=== PATIENT | female | born 1935 ===

== ENCOUNTER 2016-11-02 17:51 | Observation (INO) | payer MEDICARE, OTHER ==
[2016-11-02 18:01] VITALS: BMI 25.4
--- NOTE | 2016-11-02 19:12 | ED PDOC ---
"Arrival/HPI - General Chief Complaint: Headache Time Seen by Provider: 11/02/16 18:37 Historian: Patient, Family (daughter) - History of Present Illness Narrative History of Present Illness (Text): 11/02/16 19:00 This 81 yo female with pmh cva, ra, htn, hypercholesterol, dm, presents to this ED c/o posterior KHAN x 4 weeks. Patient stated she saw Dr. Martinez, who ordered an MRI of brain. She has MRI done 3 weeks ago, which was no acute finding. Daughter stated she spoke with patient, and daughter found patient speech was slurred. Time/Duration: Other (see hpi) Symptom Course: Worsening Context: Home Past Medical History - Provider Review Nursing Documentation Reviewed: Yes - Reproductive Menopause: Yes - Cardiac Hx Hypertension: Yes - Neurological HX Cerebrovascular Accident: Yes - Endocrine/Metabolic Hx Diabetes Mellitus Type 2: Yes - Musculoskeletal/Rheumatological Hx Rheumatoid Arthritis: Yes - Psychiatric Hx Depression: No Hx Substance Use: No - Surgical History Hx Hysterectomy: Yes - Anesthesia Hx Anesthesia: Yes Hx Anesthesia Reactions: No Hx Malignant Hyperthermia: No - Suicidal Assessment Feels Threatened In Home Enviroment: No Family/Social History Smoking Status: Never Smoked Hx Alcohol Use: No Hx Substance Use: No Allergies/Home Meds Allergies/Adverse Reactions: Allergies shellfish derived Allergy (Verified 11/02/16 17:55) URTICARIA shrimp Allergy (Verified 11/02/16 17:55) URTICARIA Home Medications: Home Meds Medication Instructions Recorded Confirmed Atenolol [Tenormin] 25 mg PO DAILY 11/02/16 11/02/16 Glipizide [Glipizide Xl] 5 mg PO BID 11/02/16 11/02/16 Levothyroxine Sodium 137 mcg PO DAILY 11/02/16 11/02/16 [Levothyroxine Sodium] Losartan [Cozaar] 100 mg PO DAILY 11/02/16 11/02/16 Methotrexate [Methotrexate] 8 tab PO QWK 11/02/16 11/02/16 Pantoprazole [Protonix EC Tab] 40 mg PO DAILY 11/02/16 11/02/16 Pravastatin Sodium [Pravachol] 40 mg PO DAILY 11/02/16 11/02/16 Prednisone [Arpit] 5 mg PO DAILY 11/02/16 11/02/16 chlordiazePOXIDE [Librium] 10 mg PO DAILY 11/02/16 11/02/16 metFORMIN [glucOPHAGE] 500 mg PO BID 11/02/16 11/02/16 Physical Exam Vital Signs Temp Pulse Resp BP Pulse Ox 11/02/16 20:00 60 18 154/89 H 97 11/02/16 17:55 98.1 F 65 18 152/76 H 97 Medical Decision Making - Lab Interpretations Lab Results: 11/02/16 20:20 11/02/16 20:20 Lab Results 11/02/16 20:20: Sodium 134, Potassium 4.9, Chloride 95 L, Carbon Dioxide 29, Anion Gap 15, BUN 18, Creatinine 0.9, Est GFR ( Amer) > 60, Est GFR (Non- Af Amer) > 60, Random Glucose 215 H, Calcium 9.5, Total Bilirubin 0.7, AST 19, ALT 19, Alkaline Phosphatase 50, Total Protein 7.5, Albumin 3.9, Globulin 3.6, Albumin/Globulin Ratio 1.1 11/02/16 20:20: WBC 7.5 D, RBC 3.91, Hgb 11.3 L, Hct 34.3 L, MCV 87.7, MCH 28.9 , MCHC 32.9, RDW 15.5 H, Plt Count 180, MPV 10.4, Gran % 88.3 H, Lymph % (Auto) 10.1 L, [place] % (Auto) 0.9 L, Eos % (Auto) 0.7 L, Baso % (Auto) 0.0, Gran # 6.59 H, Lymph # 0.8 L, [place] # 0.1, Eos # 0.1, Baso # 0.00 - RAD Interpretation Narrative RAD Interpretations (Text): 11/02/16 21:10 [facility] FINDINGS: Brain: Bilateral white matter changes. This is nonspecific and may include microangiopathic disease, small lacunae of indeterminate chronicity, chronic infarcts and/or encephalomalacia. Atrophy. Vascular calcification. No hemorrhage. No edema. Ventricles: No hydrocephalus. Bones: Skull is intact. Sinuses: Partial visualization of mild paranasal sinus mucosal thickening. Mastoid air cells: No mastoid effusion. IMPRESSION: No CT evidence of acute intracranial abnormality. Chronic changes as above. Acute infarcts/early ischemic changes may not be detectable by this modality; MRI is more sensitive in detecting acute ischemia. Thank you for allowing us to participate in the care of your patient. Dictated and Authenticated by: Angle Mercado MD FAN RACHEL | Final Radiology Report CONFIDENTIALITY STATEMENT This report is intended only for use by the referring physician, and only in accordance with law. If you received this in error, call [phone]. Page 2 of 2 11/02/2016 9:01 PM Eastern Time ([place] & [place]) Radiology Orders: 11/02/16 19:22 HEAD W/O CONTRAST [CT] Stat NIHSS Scale (Sweet) Time Performed: 20:21 - How Severe is the Stoke Baseline Level of Consciousness: 0=Alert LOC to Questions: 0=Both comments correct LOC to commands: 0=Obeys both correctly Best Gaze: 0=Normal Visual: 0=No visual loss Facial: 0=Normal Motor Arm - Left: 0=No drift Motor Arm - Right: 0=No drift Motor Leg - Left: 0=No drift Motor Leg - Right: 0=No drift Limb Ataxia: 0=Absent Sensory: 0=Normal Best Language: 0=No aphasia Dysarthia: 0=Normal articulation Extinction & Inattention (Neglect): 0=Normal, no object Score: 0 Risk Level: No Stroke Risk Disposition/Present on Arrival - Present on Arrival History of DVT/PE: No History of Uncontrolled Diabetes: Yes Urinary Catheter: No History of Decub. Ulcer: No History Surgical Site Infection Following: None - Disposition Referrals: Kenneth Morton MD [Primary Care Provider] - Follow up with primary"
[2016-11-02 20:38] LABS: EOS # 0.1 (0.0-0.7); EOS % 0.7 % (1.5-5.0); GRAN # 6.59 (1.4-6.5); GRAN % 88.3 % (50.0-68.0); HEMOGLOBIN 11.3 gm/dL (12.0-16.0); LYMPH # 0.8 (1.2-3.4); LYMPH % 10.1 % (22.0-35.0); MEAN CELL VOLUME 87.7 fL (80.0-105.0); MEAN CORPUSCULAR HEMOGLOBIN 28.9 pg (25.0-35.0); MEAN CORPUSCULAR HGB CONC 32.9 g/dl (31.0-37.0); MEAN PLATELET VOLUME 10.4 fl (7.0-11.0); MONO # 0.1 (0.1-0.6); MONO % 0.9 % (1.0-6.0); PLATELET COUNT 180 10^3/uL (120.0-450.0); RBC 3.91 10^6/uL (3.5-6.1); RED CELL DISTRIBUTION WIDTH 15.5 % (11.5-14.5); WHITE BLOOD COUNT 7.5 10^3/ul (4.5-11.0)
[2016-11-02 20:45] LABS: URINE BILIRUBIN NEGATIVE (NEGATIVE); URINE BLOOD TRACE-INTACT (NEGATIVE); URINE GLUCOSE (UA) NEGATIVE (NEGATIVE); URINE LEUKOCYTE ESTERASE SMALL Leu/uL (NEGATIVE); URINE NITRATE NEGATIVE (NEGATIVE); URINE PROTEIN NEGATIVE mg/dL (<30 mg/dL); URINE UROBILINOGEN 0.2 E.U./dL (<1 E.U./dL)
[2016-11-02 20:49] LABS: ALB/GLOB RATIO 1.1 (1.1-1.8); ALBUMIN 3.9 g/dL (3.0-4.8); ALT/SGPT 19 U/L (7-56); AST/SGOT 19 U/L (15-39); BLOOD UREA NITROGEN 18 mg/dL (7-21); CALCIUM 9.5 mg/dL (8.4-10.5); GFR AFRICAN-AMERICAN > 60; GFR NON-AFRICAN AMERICAN > 60; INR 0.99 (0.93-1.08); PARTIAL THROMBOPLASTIN TIME 25.3 Seconds (23.7-30.8); PROTHROMBIN TIME 10.7 Seconds (9.9-11.8)
--- NOTE | 2016-11-02 21:01 | CT ---
EXAM: CT Head Without Intravenous Contrast CLINICAL HISTORY: 81 years old, female; Signs and symptoms; Speech disturbance; Additional info: Slurred speech TECHNIQUE: Axial computed tomography images of the head/brain without intravenous contrast. This CT exam was performed using one or more of the following dose reduction techniques: automated exposure control, adjustment of the mA and/or kV according to patient size, and/or use of iterative reconstruction technique. COMPARISON: MR - BRAIN WITHOUT CONTRAST 10/10/2016 5:12:14 PM FINDINGS: Brain: Bilateral white matter changes. This is nonspecific and may include microangiopathic disease, small lacunae of indeterminate chronicity, chronic infarcts and/or encephalomalacia. Atrophy. Vascular calcification. No hemorrhage. No edema. Ventricles: No hydrocephalus. Bones: Skull is intact. Sinuses: Partial visualization of mild paranasal sinus mucosal thickening. Mastoid air cells: No mastoid effusion. IMPRESSION: No CT evidence of acute intracranial abnormality. Chronic changes as above. Acute infarcts/early ischemic changes may not be detectable by this modality; MRI is more sensitive in detecting acute ischemia.
[2016-11-02 21:17] LABS: URINE APPEARANCE SL CLOUDY (CLEAR); URINE COLOR YELLOW (YELLOW)
[2016-11-02 21:32] LABS: URINE BACTERIA FEW (NEG); URINE RBC 0 - 2 /hpf (0-2)
[2016-11-02 22:01] LABS: TROPONIN I < 0.01 ng/mL
--- NOTE | 2016-11-02 23:39 | CP.PCM.HP ---
<Froilan Yeh - Last Filed: 11/03/16 02:17> History of Present Illness - History of Present Illness History of Present Illness: Patient is a 81 y/o female with PMHx of anxiety, rheumatoid arthritis, htn, hpl , dm, presents to this ED for evaluation of a headache which began approximately 4 weeks ago without a specific provoking event. The headache is localized to the posterior aspect of the head. The pain is described as being dull in nature. It is exacerbated with activity and relieved when the patient massages affected region with Bengay medication. Patient stated she saw Dr. Martinez regarding this issue who ordered an MRI of brain 3 weeks ago, with no acute finding. Daughter is at bedside and states her mother did not have any signs of slurred speech or confusion. However, as per daughter the neighbor reported the patient experiencing slurred speech which the patient is denying having occurred. Patient denies fever, chills, chest pain, SOB, abdominal pain, N/V, diarrhea, constipation, and urinary symptoms. PMHx: anxiety, rheumatoid arthritis, htn, hpl, dm, bilateral cataracts PSHx: hysterectomy, cataract surgery right eye, varicose vein surgery left lower extremity Allergies: shellfish Social hx: denies ETOH, denies tobacco use, denies illicit drug use Family Hx: noncontributory to this case PMD: Dr. Martinez Present on Admission - Present on Admission Any Indicators Present on Admission: No Review of Systems - Review of Systems Review of Systems: 12 point ROS negative except as indicated in HPI. Past Patient History - Past Medical History & Family History Past Medical History?: Yes - Past Social History Smoking Status: Never Smoked - CARDIAC Hx Hypertension: Yes - NEUROLOGICAL HX Cerebrovascular Accident: Yes - ENDOCRINE/METABOLIC Hx Diabetes Mellitus Type 2: Yes - MUSCULOSKELETAL/RHEUMATOLOGICAL Hx Rheumatoid Arthritis: Yes - PSYCHIATRIC Hx Depression: No Hx Substance Use: No - SURGICAL HISTORY Hx Hysterectomy: Yes - ANESTHESIA Hx Anesthesia: Yes Hx Anesthesia Reactions: No Hx Malignant Hyperthermia: No Meds Allergies/Adverse Reactions: Allergies Allergy/AdvReac Type Severity Reaction Status Date / Time shellfish derived Allergy Intermediate URTICARIA Verified 11/03/16 01:22 shrimp Allergy Intermediate URTICARIA Verified 11/03/16 01:22 Physical Exam - Constitutional Appears: Non-toxic, No Acute Distress - Head Exam Head Exam: ATRAUMATIC, NORMAL INSPECTION - Eye Exam Eye Exam: EOMI, Normal appearance, PERRL - ENT Exam ENT Exam: Mucous Membranes Moist - Neck Exam Neck exam: Positive for: Full Rom. Negative for: Tenderness, Thyromegaly - Respiratory Exam Respiratory Exam: Clear to Auscultation Bilateral, NORMAL BREATHING PATTERN. absent: Rales, Rhonchi, Wheezes - Cardiovascular Exam Cardiovascular Exam: REGULAR RHYTHM, +S1, +S2 - GI/Abdominal Exam GI & Abdominal Exam: absent: Distended, Guarding, Rigid, Soft, Tenderness - Extremities Exam Extremities exam: Positive for: tenderness, pedal pulses present. Negative for : pedal edema Additional comments: left lower extremity ecchymosis - Back Exam Back exam: absent: CVA tenderness (L), CVA tenderness (R) - Neurological Exam Neurological exam: Alert, CN II-XII Intact, Oriented x3 - Psychiatric Exam Psychiatric exam: Anxious - Skin Skin Exam: Intact, Warm Results - Vital Signs Recent Vital Signs: Last Vital Signs Temp 98.1 F 11/02/16 17:55 Pulse 60 11/02/16 20:00 Resp 18 11/02/16 20:00 BP 154/89 H 11/02/16 20:00 Pulse Ox 97 11/02/16 20:00 - Labs Result Diagrams: 11/02/16 20:20 11/02/16 20:20 Assessment & Plan - Assessment and Plan (Free Text) Assessment: Patient is a 81 year old female with a PMHx of diabetes, hypertension, hyperlipidemia, hypothyroidism, RA who is being admitted to the hospital for evaluation and treatment of headache. 1. Headache, details- localized to the occipital condyles - Possible TIA - Noncontrast CT of Head reviewed- No CT evidence of acute intracranial abnormality. No hemorrhage. No edema. Bilateral white matter changes. This is nonspecific and may include microangiopathic disease, Vascular calcification present. - Neurochecks q4 - Neurology consult - Continue aspirin and statin 2. Diabetes - hold home diabetic medications - ACHS accu checks - Insulin sliding scales 3. Hypertension - continue home atenolol hold if SBP is less than 100 and/or HR is 60 in ED - continue home losartan hold if SBP is less than 100 and/or HR is 60 in ED 4. Hyperlipidemia - continue home statin 5. Hypothyroidism - continue home levothyroxine - TSH - T4 6. Rheumatoid Arthritis - continue home prednisone - hold home metotrexate 7. Anemia - HGb 11.3 at baseline - HCT 34.3 at baseline - monitor closely via daily CBC 7. PPX - subq heparin q12 - pantoprazole Patient discussed with attending, Dr. Trujillo. <Cassandra WATKINS,Atilio - Last Filed: 11/03/16 07:30> Results - Vital Signs Recent Vital Signs: Last Vital Signs Temp 97.1 F L 11/03/16 01:30 Pulse 56 L 11/03/16 06:00 Resp 19 11/03/16 01:30 BP 154/60 H 11/03/16 01:30 Pulse Ox 99 11/02/16 23:00 - Labs Result Diagrams: 11/02/16 20:20 11/02/16 20:20 Labs: Laboratory Results - last 24 hr 11/03/16 07:11 POC Glucose (mg/dL) 167 H Attending/Attestation - Attestation I have personally seen and examined this patient.: Yes I have fully participated in the care of the patient.: Yes I have reviewed all pertinent clinical information: Yes Notes (Text): 11/03/16 07:29 -I agree with the above H&P completed by the resident physician with the following additions and/or changes: The patiuent is an 81 year old woman with a history of IDDM, hypertension, hyperlipidemia, hypothyroidism and RA, admitted for worsening headache and possible TIA. Neurology consulted. Head imaging negative.
[2016-11-03] MEDS ORDERED: Pantoprazole 40 mg EC Tab PO SCH (06:00)
[2016-11-03] MEDS ORDERED: Levothyroxine 25 MCG TAB PO SCH ×2 (06:00)
[2016-11-03] MEDS ORDERED: Levothyroxine 112 MCG TAB PO SCH (06:00)
[2016-11-03] MEDS: Insulin Lispro (humaLOG) MEDIUM Coverage SC SCH ×2 (07:30→11:51)
[2016-11-03 07:54] LABS: BASO # 0.01 K/mm3 (0.0-2.0); BASO % 0.1 % (0.0-3.0); EOS # 0.3 (0.0-0.7); EOS % 4.6 % (1.5-5.0); GRAN # 4.25 (1.4-6.5); GRAN % 63.8 % (50.0-68.0); LYMPH # 1.9 (1.2-3.4); MEAN CELL VOLUME 87.3 fL (80.0-105.0); MEAN CORPUSCULAR HEMOGLOBIN 28.5 pg (25.0-35.0); MEAN CORPUSCULAR HGB CONC 32.6 g/dl (31.0-37.0); MEAN PLATELET VOLUME 10.8 fl (7.0-11.0); MONO # 0.2 (0.1-0.6); MONO % 2.5 % (1.0-6.0); PLATELET COUNT 212 10^3/uL (120.0-450.0); RBC 3.86 10^6/uL (3.5-6.1); RED CELL DISTRIBUTION WIDTH 15.7 % (11.5-14.5); WHITE BLOOD COUNT 6.7 10^3/ul (4.5-11.0)
[2016-11-03 08:04] LABS: ALBUMIN 3.6 g/dL (3.0-4.8); ALT/SGPT 13 U/L (7-56); AST/SGOT 18 U/L (15-39); BLOOD UREA NITROGEN 19 mg/dL (7-21); CALCIUM 9.4 mg/dL (8.4-10.5); GFR AFRICAN-AMERICAN > 60; GFR NON-AFRICAN AMERICAN > 60; HDL CHOLESTEROL 47 mg/dL (29-60); MAGNESIUM 2.2 mg/dL (1.7-2.2)
[2016-11-03 08:20] LABS: LDL CHOLESTEROL 90 mg/dL (0-129)
[2016-11-03 08:30] LABS: T4 9.7 ug/dL (5.5-11.0)
[2016-11-03 08:33] VITALS: BP 132/53; RESP 18; TEMP 97.9; O2SAT 94
[2016-11-03 11:25] VITALS: PULSE 60
--- NOTE | 2016-11-03 18:46 | CP.PCM.DIS ---
Provider - Provider Date of Admission: 11/02/16 22:28 Attending physician: Una Cleary MD Primary care physician: Kenneth Morton MD Time Spent in preparation of Discharge (in minutes): 45 Diagnosis - Discharge Diagnosis (1) Headache Status: Acute Hospital Course - Lab Results Lab Results: Most Recent Lab Values WBC 6.7 10^3/ul (4.5-11.0) 11/03/16 07:30 RBC 3.86 10^6/uL (3.5-6.1) 11/03/16 07:30 Hgb 11.0 gm/dL (12.0-16.0) L 11/03/16 07:30 Hct 33.7 % (36.0-48.0) L 11/03/16 07:30 MCV 87.3 fL (80.0-105.0) 11/03/16 07:30 MCH 28.5 pg (25.0-35.0) 11/03/16 07:30 MCHC 32.6 g/dl (31.0-37.0) 11/03/16 07:30 RDW 15.7 % (11.5-14.5) H 11/03/16 07:30 Plt Count 212 10^3/uL (120.0-450.0) 11/03/16 07:30 MPV 10.8 fl (7.0-11.0) 11/03/16 07:30 Gran % 63.8 % (50.0-68.0) 11/03/16 07:30 Lymph % (Auto) 29.0 % (22.0-35.0) 11/03/16 07:30 [place] % (Auto) 2.5 % (1.0-6.0) 11/03/16 07:30 Eos % (Auto) 4.6 % (1.5-5.0) 11/03/16 07:30 Baso % (Auto) 0.1 % (0.0-3.0) 11/03/16 07:30 Gran # 4.25 (1.4-6.5) 11/03/16 07:30 Lymph # 1.9 (1.2-3.4) 11/03/16 07:30 [place] # 0.2 (0.1-0.6) 11/03/16 07:30 Eos # 0.3 (0.0-0.7) 11/03/16 07:30 Baso # 0.01 K/mm3 (0.0-2.0) 11/03/16 07:30 PT 10.7 Seconds (9.9-11.8) 11/02/16 20:20 INR 0.99 (0.93-1.08) 11/02/16 20:20 APTT 25.3 Seconds (23.7-30.8) 11/02/16 20:20 Sodium 137 mmol/L (132-148) 11/03/16 07:30 Potassium 4.2 mmol/L (3.6-5.0) 11/03/16 07:30 Chloride 99 mmol/L (98-107) 11/03/16 07:30 Carbon Dioxide 30 mmol/L (21-33) 11/03/16 07:30 Anion Gap 12 (10-20) 11/03/16 07:30 BUN 19 mg/dL (7-21) 11/03/16 07:30 Creatinine 0.9 mg/dL (0.5-1.4) 11/03/16 07:30 Est GFR ( Amer) > 60 11/03/16 07:30 Est GFR (Non-Af Amer) > 60 11/03/16 07:30 POC Glucose (mg/dL) 233 mg/dL (65-110) H 11/03/16 11:05 Random Glucose 137 mg/dL (70-110) H 11/03/16 07:30 Calcium 9.4 mg/dL (8.4-10.5) 11/03/16 07:30 Phosphorus 3.9 mg/dL (2.5-4.5) 11/03/16 07:30 Magnesium 2.2 mg/dL (1.7-2.2) 11/03/16 07:30 Total Bilirubin 0.6 mg/dL (0.2-1.3) 11/03/16 07:30 AST 18 U/L (15-39) 11/03/16 07:30 ALT 13 U/L (7-56) 11/03/16 07:30 Alkaline Phosphatase 46 U/L (38-133) 11/03/16 07:30 Lactate Dehydrogenase 509 U/L (333-699) 11/02/16 20:30 Total Creatine Kinase 60 U/L (35-230) 11/02/16 20:30 Troponin I < 0.01 ng/mL 11/02/16 20:30 Total Protein 7.1 g/dL (5.8-8.3) 11/03/16 07:30 Albumin 3.6 g/dL (3.0-4.8) 11/03/16 07:30 Globulin 3.5 gm/dL 11/03/16 07:30 Albumin/Globulin Ratio 1.0 (1.1-1.8) L 11/03/16 07:30 Triglycerides 125 mg/dL (35-160) 11/03/16 07:30 Cholesterol 166 mg/dL (130-200) 11/03/16 07:30 LDL Cholesterol Direct 90 mg/dL (0-129) 11/03/16 07:30 HDL Cholesterol 47 mg/dL (29-60) 11/03/16 07:30 Thyroxine (T4) 9.7 ug/dL (5.5-11.0) 11/03/16 07:30 TSH 3rd Generation 0.66 mIU/mL (0.46-4.68) 11/03/16 07:30 Urine Color Yellow (YELLOW) 11/02/16 20:40 Urine Appearance Sl cloudy (CLEAR) 11/02/16 20:40 Urine pH 7.0 (4.7-8.0) 11/02/16 20:40 Ur Specific [place] <= 1.005 (1.005-1.035) 11/02/16 20:40 Urine Protein Negative mg/dL (<30 mg/dL) 11/02/16 20:40 Urine Glucose (UA) Negative mg/dL (NEGATIVE) 11/02/16 20:40 Urine Ketones Negative mg/dL (NEGATIVE) 11/02/16 20:40 Urine Blood Trace-intact (NEGATIVE) H 11/02/16 20:40 Urine Nitrate Negative (NEGATIVE) 11/02/16 20:40 Urine Bilirubin Negative (NEGATIVE) 11/02/16 20:40 Urine Urobilinogen 0.2 E.U./dL (<1 E.U./dL) 11/02/16 20:40 Ur Leukocyte Esterase Small [place]/uL (NEGATIVE) H 11/02/16 20:40 Urine RBC 0 - 2 /hpf (0-2) 11/02/16 20:40 Urine WBC 2 - 5 /hpf (0-6) 11/02/16 20:40 Ur Epithelial Cells 4 - 5 /hpf (0-5) 11/02/16 20:40 Urine Bacteria Few (NEG) 11/02/16 20:40 - Hospital Course Hospital Course: Patient is a 81 y/o female with PMHx of anxiety, rheumatoid arthritis, htn, hpl , dm, presents to this ED for evaluation of a headache which began approximately 4 weeks ago without a specific provoking event. The headache is localized to the posterior aspect of the head. The pain is described as being dull in nature. It is exacerbated with activity and relieved when the patient massages affected region with Bengay medication. Patient stated she saw Dr. Martinez regarding this issue who ordered an MRI of brain 3 weeks ago, with no acute finding. Daughter is at bedside and states her mother did not have any signs of slurred speech or confusion. However, as per daughter the neighbor reported the patient experiencing slurred speech which the patient is denying having occurred. Patient denies fever, chills, chest pain, SOB, abdominal pain, N/V, diarrhea, constipation, and urinary symptoms. Patient was seen by a neurologist in patient, who recommended out patient follow up. No focal neurologic deficits were appreciated, and since the pain was dissipated by massage, the complaint was deemed most likely musculoskeletal , and patient was approved for discharge by both the neurology and the medicine team. - Date & Time of H&P Date of H&P: 11/02/16 Time of H&P: 23:35 Discharge Exam - Head Exam Head Exam: ATRAUMATIC, NORMAL INSPECTION - Eye Exam Eye Exam: EOMI Pupil Exam: Fixed, NORMAL ACCOMODATION, PERRL - ENT Exam ENT Exam: Mucous Membranes Moist - Neck Exam Neck exam: Full Rom - Respiratory Exam Respiratory Exam: Clear to PA & Lateral, NORMAL BREATHING PATTERN, UNREMARKABLE - Cardiovascular Exam Cardiovascular Exam: REGULAR RHYTHM - GI/Abdominal Exam GI & Abdominal Exam: Normal Bowel Sounds - Rectal Exam Rectal Exam: Deferred - Back Exam Back exam: FULL ROM - Neurological Exam Neurological exam: Alert, CN II-XII Intact, Normal Gait, Oriented x3, Reflexes Normal - Psychiatric Exam Psychiatric exam: Normal Affect, Normal Mood - Skin Skin Exam: Normal Color Discharge Plan - Discharge Medications Prescriptions: Aspirin [Aspirin Chewable] 81 mg PO DAILY #30 Aspirin [Low Dose Aspirin EC] 81 mg PO DAILY #30 tablet. - Follow Up Plan Condition: GOOD Disposition: HOME/ ROUTINE Instructions: Transient Ischemic Attack (DC), Transient Ischemic Attack (GEN) Additional Instructions: Please follow up with Dr. Angus Barton at [phone] within one week. If symptoms persist, please report to the Emergency Room Referrals: Kenneth Morton MD [Primary Care Provider] -
== END 2016-11-03 17:41 | disposition home or self-care (01) ==
LOC: ED 17:51 → ERH 22:28 → 3RSO 23:48
PROVIDERS: ADMIT Internal Medicine; ATTEND Internal Medicine
DX: R51 Headache (principal); I10 Essential (primary) hypertension; E78.00 Pure hypercholesterolemia, unspecified; E11.9 Type 2 diabetes mellitus without complications; Z86.73 Personal history of transient ischemic attack (TIA), and cerebral infarction without residual deficits; M06.9 Rheumatoid arthritis, unspecified; F41.9 Anxiety disorder, unspecified; E78.5 Hyperlipidemia, unspecified; E03.9 Hypothyroidism, unspecified; D64.9 Anemia, unspecified; Z79.84 Long term (current) use of oral hypoglycemic drugs; Z90.710 Acquired absence of both cervix and uterus; Z98.42 Cataract extraction status, left eye; Z98.41 Cataract extraction status, right eye
CPT/HCPCS: 36415; 70450; 80053; 80061; 81001; 82550; 82948; 83615; 83735; 84100; 84436; 84443; 84484; 85025; 85610; 85730; 87086; 97116; 97161; 99285; G0378; G8978; G8979; G8980; J1644

== ENCOUNTER 2017-07-23 09:30 | Inpatient (IN) | payer MEDICARE, OTHER ==
[2017-07-23 09:32] VITALS: BMI 22.8
[2017-07-23] MEDS ORDERED: Sodium Chloride 0.9% 500 ML IV STA (09:47)
--- NOTE | 2017-07-23 10:07 | ED PDOC ---
Arrival/HPI - General Chief Complaint: Trauma Time Seen by Provider: 07/23/17 09:37 Historian: Patient, Family - History of Present Illness Narrative History of Present Illness (Text): 07/23/17 10:04 81-year-old female with a history of diabetes presents today with a syncopal episode at home. Patient states for the past 3 days she's been sick with nausea vomiting and diarrhea. pt states she has been having 4-5 episodes of diarrhea daily as well as 3 episodes of vomiting. Patient states she's been unable to eat or drink due to the nausea and vomiting. Patient states she's been having some intermittent chest pain. She denies urinary symptoms. Patient states that today she was walking and states when she opened her eyes she was on the floor. Patient is complaining of left ankle pain x 3 days. Per patient she also had fallen 3 days ago and injured the ankle but has been walking on it ever since. Patient denies shortness of breath. Patient states she also has had a cough for almost a week. Denies neck or back pain. Complaining of slight headache. Patient states she is feeling overall generally weak. No other complaints Time/Duration: 1 week Symptom Onset: Gradual Symptom Course: Worsening Severity Level: 3 Past Medical History - Provider Review Nursing Documentation Reviewed: Yes - Travel History Have you recently traveled outside [place] w/in the past 3 mons?: No - Tetanus Immunization Tetanus Immunization: Unknown - Cardiac Hx Hypertension: Yes - Pulmonary Hx Chronic Obstructive Pulmonary Disease (COPD): Yes - Neurological HX Cerebrovascular Accident: Yes - HEENT Hx HEENT Disorder: Yes Hx Cataracts: Yes - Renal Hx Renal Disorder: No - Endocrine/Metabolic Hx Diabetes Mellitus Type 2: Yes - Hematological/Oncological Hx Blood Disorders: No Hx Shingles: Yes - Integumentary Hx Dermatological Disorder: No - Musculoskeletal/Rheumatological Hx Rheumatoid Arthritis: Yes - Gastrointestinal Hx Gastrointestinal Disorders: Yes Hx Gastroesophageal Reflux: Yes - Genitourinary/Gynecological Hx Genitourinary Disorders: No - Psychiatric Hx Depression: No Hx Substance Use: No - Surgical History Hx Hysterectomy: Yes - Anesthesia Hx Anesthesia: Yes Hx Anesthesia Reactions: No Hx Malignant Hyperthermia: No - Suicidal Assessment Feels Threatened In Home Enviroment: No Family/Social History - Physician Review Nursing Documentation Reviewed: Yes Family/Social History: Unknown Family HX Smoking Status: Never Smoked Hx Alcohol Use: No Hx Substance Use: No Allergies/Home Meds Allergies/Adverse Reactions: Allergies shellfish derived Allergy (Intermediate, Verified 07/23/17 09:32) URTICARIA swelling & redness shrimp Allergy (Intermediate, Verified 07/23/17 09:32) URTICARIA swelling, redness Home Medications: Home Meds Medication Instructions Recorded Confirmed Atenolol [Tenormin] 25 mg PO DAILY 11/02/16 07/23/17 Glipizide [Glipizide Xl] 25 mg PO BID 11/02/16 07/23/17 Levothyroxine Sodium 137 mcg PO DAILY 11/02/16 07/23/17 Pantoprazole [Protonix EC Tab] 40 mg PO DAILY 11/02/16 07/23/17 Pravastatin Sodium [Pravachol] 40 mg PO DAILY 11/02/16 07/23/17 Prednisone [Arpit] 5 mg PO DAILY 11/02/16 07/23/17 metFORMIN [glucOPHAGE] 500 mg PO BID 11/02/16 07/23/17 Albuterol HFA [Ventolin HFA 90 0 mg IH DAILY 07/23/17 07/23/17 mcg/actuation (8 g)] Fluticasone/Vilanterol [Breo 1 each IH DAILY 07/23/17 07/23/17 Ellipta 100-25 Mcg INH] Lidocaine 2% [Xylocaine 2%] 1 appl TP DAILY 07/23/17 07/23/17 Omeprazole Magnesium [Prilosec Otc] 40 mg PO DAILY 07/23/17 07/23/17 Review of Systems - Review of Systems Constitutional: Fatigue. absent: Fevers ENT: absent: Sore Throat, Sinus Congestion Respiratory: Cough. absent: SOB Cardiovascular: Chest Pain, Syncope. absent: Palpitations Gastrointestinal: Abdominal Pain, Diarrhea, Nausea, Vomiting. absent: Constipation Genitourinary Female: absent: Dysuria, Frequency, Hematuria Musculoskeletal: Arthralgias (left ankle pain). absent: Back Pain, Neck Pain Skin: absent: Rash, Pruritis Neurological: Headache, Dizziness Psychiatric: absent: Anxiety, Depression, Suicidal Ideation Physical Exam Vital Signs Reviewed: Yes Vital Signs Temp Pulse Resp BP Pulse Ox 07/23/17 17:47 61 18 128/53 L 100 07/23/17 15:08 68 18 121/76 98 07/23/17 12:19 99.6 F 72 18 116/55 L 98 07/23/17 09:31 98.4 F 70 18 133/65 100 Temperature: Afebrile Blood Pressure: Normal Pulse: Regular Respiratory Rate: Normal Appearance: Positive for: Well-Appearing, Non-Toxic, Comfortable Pain Distress: None Mental Status: Positive for: Alert and Oriented X 3 - Systems Exam Head: Present: Atraumatic Pupils: Present: PERRL Extroacular Muscles: Present: EOMI Conjunctiva: Present: Normal Mouth: Present: Dry Nose (External): Present: Atraumatic Neck: Present: Normal Range of Motion. No: MIDLINE TENDERNESS, Paraspinal Tenderness Respiratory/Chest: Present: Good Air Exchange, Rhonchi (Left lower lung base). No: Clear to Auscultation, Respiratory Distress, Accessory Muscle Use, Wheezes Cardiovascular: Present: Regular Rate and Rhythm. No: Murmurs, Tachycardic Abdomen: Present: Tenderness (+ epigastric tenderness). No: Distention, Rebound , Guarding Back: Present: Normal Inspection. No: CVA Tenderness, Midline Tenderness, Paraspinal Tenderness Upper Extremity: Present: Normal ROM Lower Extremity: Present: NORMAL PULSES, Normal ROM, Tenderness (left ankle; + ttp over lateral malleolus; full rom of ankle; foot non tender; no erythema; no edema, no ecchymosis. ), Neurovascularly Intact, Capillary Refill < 2 s. No: CALF TENDERNESS, Swelling, Erythema, Deformity Neurological: Present: GCS=15, Speech Normal Skin: Present: Warm, Dry, Normal Color. No: Rashes Psychiatric: Present: Alert, Oriented x 3 Medical Decision Making ED Course and Treatment: 07/23/17 10:09 81-year-old diabetic female with a syncopal episode at home with a 3 to four- day history of nausea vomiting diarrhea and now 1 week history of cough pt c/o pain to left ankle; pt refusing pain medications at this time. pt states she doesnt want to take any "strong" medications Patient given 500 mL normal saline bolus patient fs <20; amp of d50 given. pt drank orange juice. CBC: wnl CMP: glucose; 43 Troponin: wnl Lipase: wnl BNP: elevated Lactic acid: wnl EKG shows normal sinus rhythm at 71 bpm normal axis normal intervals no ST elevations Chest x-ray: wnl Head CT:FINDINGS: HEMORRHAGE: No intracranial hemorrhage. BRAIN: No mass effect or edema. No atrophy or chronic microvascular ischemic changes. VENTRICLES: Unremarkable. No hydrocephalus. CALVARIUM: Unremarkable. PARANASAL SINUSES: Unremarkable as visualized. No significant inflammatory changes. MASTOID AIR CELLS: Unremarkable as visualized. No inflammatory changes. OTHER FINDINGS: None. IMPRESSION: No acute findings left ankle: + fracture fibula ct abd/pelvis; FINDINGS: LOWER THORAX: There is minimal consolidation at the left lung base. There is some peribronchial thickening in the left lower lobe LIVER: Unremarkable. No gross lesion or ductal dilatation. GALLBLADDER AND BILE DUCTS: Unremarkable. PANCREAS: Unremarkable. No gross lesion or ductal dilatation. SPLEEN: Unremarkable. ADRENALS: Unremarkable. No mass. KIDNEYS AND URETERS: Unremarkable. No hydronephrosis. No solid mass. There is a large cyst in the lower pole of left kidney. VASCULATURE: Unremarkable. No aortic aneurysm. BOWEL: Unremarkable. No obstruction. No gross mural thickening. APPENDIX: Normal appendix. PERITONEUM: Unremarkable. No free fluid. No free air. LYMPH NODES: Unremarkable. No enlarged lymph nodes. BLADDER: Unremarkable. REPRODUCTIVE: Unremarkable. BONES: No acute fracture. OTHER FINDINGS: None. IMPRESSION: No acute intra-abdominal findings. Minimal consolidation at the left lung base with peribronchial thickening Patient reassessment: pt states she feels better; resting comfortably; i advised patient of ankle fracture. pt has now agreed to tylenol; pt is still refusing IV/IM medications or any narcotic medications for pain. pt placed into short leg posterior splint. pt started on rocephin and zithromax for pneumonia; case discussed with dr. sanders; accepts admission; pt with elevated bnp ; [id number] 100% on room air; no respiratory distress. will admit patient to tele; for hypoglycemia, pneumonia, abdominal pain, ankle fracture dr. mcdermott made aware of ankle fracture. impression; hypoglycemia, pneumonia, abdominal pain, ankle fracture, elevated BNP Admit to telemetry Reassessment Condition: Re-examined, Improved - Lab Interpretations Lab Results: 07/23/17 11:15 07/23/17 09:50 Lab Results 07/23/17 11:34: POC Glucose (mg/dL) 139 H 07/23/17 11:15: WBC 6.1 D, RBC 3.27 L, Hgb 10.1 L, Hct 29.3 L, MCV 89.6, MCH 30.9, MCHC 34.5, RDW 17.3 H, Plt Count 130, MPV 10.6, Gran % 85.5 H, Lymph % ( Auto) 5.9 L, [place] % (Auto) 8.6 H, Eos % (Auto) 0.0 L, Baso % (Auto) 0.0, Gran # 5.20, Lymph # (Auto) 0.4 L, [place] # (Auto) 0.5, Eos # (Auto) 0.0, Baso # (Auto) 0.00 07/23/17 11:15: Urine Color Light yellow, Urine Appearance Clear, Urine pH 6.5, Ur Specific [place] <= 1.005, Urine Protein Negative, Urine Glucose (UA) 100 H, Urine Ketones Negative, Urine Blood Trace-intact H, Urine Nitrate Negative, Urine Bilirubin Negative, Urine Urobilinogen 0.2, Ur Leukocyte Esterase Negative , Urine RBC 2 - 5, Urine WBC 0 - 2, Ur Epithelial Cells 1 - 3, Urine Bacteria Small 07/23/17 10:40: POC Glucose (mg/dL) 21 L* 07/23/17 09:50: pO2 28 L, VBG pH 7.40, VBG pCO2 51.0, VBG HCO3 31.6 H, VBG Total CO2 33.2 H, VBG O2 Sat (Calc) 65.4 H, VBG Base Excess 5.5 H, VBG Potassium 4.1, Sodium 125.0 L, Chloride 91.0 L, Glucose 43 L, Lactate 0.9, FiO2 21.0, Venous Blood Potassium 4.1 07/23/17 09:50: Sodium 127 L, Chloride 88 L, Potassium 4.1, Carbon Dioxide 30, Anion Gap 13, BUN 12, Creatinine 0.9, Est GFR ( Amer) > 60, Est GFR (Non- Af Amer) > 60, Random Glucose 43 L* D, Calcium 9.2, Total Bilirubin 0.6, AST 39 H D, ALT 35, Alkaline Phosphatase 30 L, Lactate Dehydrogenase 654, Total Creatine Kinase 285 H, CK-MB (CK-2) 1.4, CK-MB (CK-2) % Cancelled, Troponin I 0.03 D, NT-Pro-B Natriuret Pep 1480 H, Total Protein 7.3, Albumin 4.0, Globulin 3.3, Albumin/Globulin Ratio 1.2, Lipase 48 - RAD Interpretation Radiology Orders: 07/23/17 09:47 ABD & PELVIS IV CONTRAST ONLY [CT] Stat HEAD W/O CONTRAST [CT] Stat 07/23/17 09:48 ANKLE LEFT 3 VIEWS ROUTINE [RAD] Stat 07/23/17 12:37 CHEST PORTABLE [RAD] Stat - Medication Orders Current Medication Orders: Acetaminophen (Tylenol 325mg Tab) 650 mg PO Q6H PRN PRN Reason: Fever >100.4 F Acetaminophen (Tylenol 325mg Tab) 650 mg PO Q6H PRN PRN Reason: Fever >100.4 F Atenolol (Tenormin) 25 mg PO DAILY [facility] Doxycycline Hyclate 100 mg/ (Sodium Chloride) 100 mls @ 100 mls/hr IVPB Q12 [place] PRN Reason: Protocol Dextrose/Sodium Chloride (Dextrose 5%/0.45% Ns 1000 Ml) 1,000 mls @ 75 mls/hr IV .[id number] [facility] Last Admin: 07/23/17 17:59 Dose: 75 mls/hr eMAR Start Stop Document 07/23/17 17:59 GMD (Rec: 07/23/17 17:59 GMD [id number]) Intravenous Solution Start Date 07/23/17 Start Time 17:59 Insulin Human Regular (Humulin R Low) 0 units SC ACHS [place] PRN Reason: Protocol Last Admin: 07/23/17 16:37 Dose: Not Given Non-Admin Reason: Blood Sugar Parameter MAR Blood Glucose Document 07/23/17 16:37 GMD (Rec: 07/23/17 16:37 GMD [id number]) Blood Glucose Finger Stick Blood Glucose (70-120) 23 Levothyroxine Sodium (Synthroid) 112 mcg PO ACB [place] Levothyroxine Sodium (Synthroid) 25 mcg PO ACB [facility] Ondansetron HCl (Zofran Inj) 4 mg IVP Q6H PRN PRN Reason: Nausea/Vomiting Pantoprazole Sodium (Protonix Inj) 40 mg IVP DAILY [facility] Last Admin: 07/23/17 13:52 Dose: 40 mg IVP Administration Document 07/23/17 13:52 GMD (Rec: 07/23/17 13:52 GMD [id number]) Charges for Administration # of IVP Administrations 1 Discontinued Medications Acetaminophen (Tylenol 325mg Tab) 975 mg PO STAT STA Stop: 07/23/17 12:34 Last Admin: 07/23/17 12:58 Dose: 975 mg Dextrose (Dextrose 50% Inj) 50 ml IVP STAT STA Stop: 07/23/17 10:36 Last Admin: 07/23/17 10:35 Dose: 50 ml IVP Administration Document 07/23/17 10:35 GMD (Rec: 07/23/17 12:46 GMD [id number]) Charges for Administration # of IVP Administrations 1 Dextrose (Dextrose 50% Inj) 50 ml IVP STAT STA Stop: 07/23/17 16:39 Last Admin: 07/23/17 17:22 Dose: 50 ml IVP Administration Document 07/23/17 17:22 GMD (Rec: 07/23/17 17:[id number]) Charges for Administration # of IVP Administrations 1 Sodium Chloride (Sodium Chloride 0.9%) 500 mls @ 999 mls/hr IV .Q31M STA Stop: 07/23/17 10:17 Last Admin: 07/23/17 10:13 Dose: 999 mls/hr Comments: unable to scan new bag of nacl. eMAR Start Stop Document 07/23/17 10:13 GMD (Rec: 07/23/17 10:13 D [id number]) Intravenous Solution Start Date 07/23/17 Start Time 10:13 End Date 07/23/17 End time 10:43 Total Infusion Time 30 Ceftriaxone Sodium (Rocephin 1 Gram Ivpb) 1 gm in 100 mls @ 200 mls/hr IVPB STAT STA PRN Reason: Protocol Stop: 07/23/17 13:35 Last Admin: 07/23/17 13:51 Dose: 200 mls/hr eMAR Start Stop Document 07/23/17 13:51 GMD (Rec: 07/23/17 13:52 GMD [id number]) Intravenous Solution Start Date 07/23/17 Start Time 13:51 End Date 07/23/17 End time 14:21 Total Infusion Time 30 Sodium Chloride (Sodium Chloride 0.45%) 1,000 mls @ 100 mls/hr IV .Q10H [place] Last Admin: 07/23/17 13:52 Dose: 100 mls/hr eMAR Start Stop Document 07/23/17 13:52 GMD (Rec: 07/23/17 13:52 GMD [id number]) Intravenous Solution Start Date 07/23/17 Start Time 13:52 Ondansetron HCl (Zofran Inj) 4 mg IVP STAT STA Stop: 07/23/17 10:06 Last Admin: 07/23/17 10:13 Dose: 4 mg IVP Administration Document 07/23/17 10:13 GMD (Rec: 07/23/17 10:13 GMD [id number]) Charges for Administration # of IVP Administrations 1 Procedures - Splinting Location: left ankle Hand-Made Type: fiberglass Splint: posterior short leg splint Pre-Proc Neuro Vasc Exam: normal Post-Proc Neuro Vasc Exam: normal Disposition/Present on Arrival - Present on Arrival Any Indicators Present on Arrival: Yes History of DVT/PE: No History of Uncontrolled Diabetes: Yes Urinary Catheter: No History of Decub. Ulcer: No History Surgical Site Infection Following: None - Disposition Have Diagnosis and Disposition been Completed?: Yes Diagnosis: Hypoglycemia, Pneumonia, Abdominal pain, Elevated brain natriuretic peptide ( BNP) level Disposition: HOSPITALIZED Disposition Time: 12:00 Patient Plan: Admission Condition: FAIR
[2017-07-23 10:12] LABS: VENOUS BLOOD GAS BASE EXCESS 5.5 mmol/L (0.0-2.0); VENOUS BLOOD GAS PO2 28 mm/Hg (30-55)
[2017-07-23 10:34] LABS: ALB/GLOB RATIO 1.2 (1.1-1.8); ALT/SGPT 35 U/L (7-56); AST/SGOT 39 U/L (14-36); BLOOD UREA NITROGEN 12 mg/dL (7-21); CALCIUM 9.2 mg/dL (8.4-10.5); GFR AFRICAN-AMERICAN > 60; GFR NON-AFRICAN AMERICAN > 60; LIPASE 48 U/L (23-300)
[2017-07-23] MEDS ORDERED: Dextrose 50% SYRINGE Inj (50 ml) IVP STA ×2 (10:35→16:38)
[2017-07-23 10:36] LABS: B-TYPE NATRIURETIC PEPTIDE 1480 pg/mL (0-450); TROPONIN I 0.03 ng/mL
[2017-07-23] MEDS ORDERED: Dextrose 50% SYRINGE Inj (50 ml) ONE (10:37)
[2017-07-23 10:41] LABS: CK-MB 1.4 ng/mL (0.0-3.6)
[2017-07-23 11:34] LABS: GRAN # 5.2 (1.4-6.5); GRAN % 85.5 % (50.0-68.0); HEMOGLOBIN 10.1 g/dL (12.0-16.0); LYMPH # 0.4 (1.2-3.4); LYMPH % 5.9 % (22.0-35.0); MEAN CELL VOLUME 89.6 fl (80.0-105.0); MEAN CORPUSCULAR HEMOGLOBIN 30.9 pg (25.0-35.0); MEAN CORPUSCULAR HGB CONC 34.5 g/dl (31.0-37.0); MEAN PLATELET VOLUME 10.6 fl (7.0-11.0); MONO # 0.5 (0.1-0.6); MONO % 8.6 % (1.0-6.0); PH,URINE 6.5 (4.7-8.0); RBC 3.27 10^6/uL (3.5-6.1); RED CELL DISTRIBUTION WIDTH 17.3 % (11.5-14.5); URINE BILIRUBIN NEGATIVE (NEGATIVE); URINE BLOOD TRACE-INTACT (NEGATIVE); URINE GLUCOSE (UA) 100 mg/dL (NEGATIVE); URINE LEUKOCYTE ESTERASE NEGATIVE Leu/uL (NEGATIVE); URINE PROTEIN NEGATIVE mg/dL (<30 mg/dL); URINE UROBILINOGEN 0.2 E.U./dL (<1 E.U./dL); WHITE BLOOD COUNT 6.1 10^3/ul (4.5-11.0)
[2017-07-23 11:35] LABS: URINE APPEARANCE CLEAR (CLEAR); URINE COLOR LIGHT YELLOW (YELLOW)
[2017-07-23 11:42] LABS: URINE BACTERIA SMALL (NEG); URINE WBC 0 - 2 /hpf (0-6)
--- NOTE | 2017-07-23 12:01 | CT ---
PROCEDURE: CT HEAD WITHOUT CONTRAST. HISTORY: headache COMPARISON: 11/02/2016 TECHNIQUE: Axial computed tomography images were obtained through the head/brain without intravenous contrast. Radiation dose: Total exam DLP = 732 mGy-cm. This CT exam was performed using one or more of the following dose reduction techniques: Automated exposure control, adjustment of the mA and/or kV according to patient size, and/or use of iterative reconstruction technique. FINDINGS: HEMORRHAGE: No intracranial hemorrhage. BRAIN: No mass effect or edema. No atrophy or chronic microvascular ischemic changes. VENTRICLES: Unremarkable. No hydrocephalus. CALVARIUM: Unremarkable. PARANASAL SINUSES: Unremarkable as visualized. No significant inflammatory changes. MASTOID AIR CELLS: Unremarkable as visualized. No inflammatory changes. OTHER FINDINGS: None. IMPRESSION: No acute findings
--- NOTE | 2017-07-23 12:17 | RAD ---
PROCEDURE: Left Ankle Radiographs. HISTORY: fall/syncope/ankle pain COMPARISON: None FINDINGS: BONES: There is an obliquely oriented minimally displaced fracture of the distal fibula above the level of the ankle joint. JOINTS: Normal. No osteoarthritis. Ankle mortise maintained. Talar dome intact SOFT TISSUES: Normal. OTHER FINDINGS: None. IMPRESSION: There is an obliquely oriented minimally displaced fracture of the distal fibula above the level of the ankle joint.
--- NOTE | 2017-07-23 12:27 | CT ---
PROCEDURE: CT Abdomen and Pelvis with contrast HISTORY: abd pain COMPARISON: None. TECHNIQUE: Contrast dose: 100 cc of Omni 350 Radiation dose: Total exam DLP = 590 mGy-cm. This CT exam was performed using one or more of the following dose reduction techniques: Automated exposure control, adjustment of the mA and/or kV according to patient size, and/or use of iterative reconstruction technique. FINDINGS: LOWER THORAX: There is minimal consolidation at the left lung base. There is some peribronchial thickening in the left lower lobe LIVER: Unremarkable. No gross lesion or ductal dilatation. GALLBLADDER AND BILE DUCTS: Unremarkable. PANCREAS: Unremarkable. No gross lesion or ductal dilatation. SPLEEN: Unremarkable. ADRENALS: Unremarkable. No mass. KIDNEYS AND URETERS: Unremarkable. No hydronephrosis. No solid mass. There is a large cyst in the lower pole of left kidney. VASCULATURE: Unremarkable. No aortic aneurysm. BOWEL: Unremarkable. No obstruction. No gross mural thickening. APPENDIX: Normal appendix. PERITONEUM: Unremarkable. No free fluid. No free air. LYMPH NODES: Unremarkable. No enlarged lymph nodes. BLADDER: Unremarkable. REPRODUCTIVE: Unremarkable. BONES: No acute fracture. OTHER FINDINGS: None. IMPRESSION: No acute intra-abdominal findings. Minimal consolidation at the left lung base with peribronchial thickening
[2017-07-23] MEDS ORDERED: Azithromycin 500MG/NS 250ml 500 MG/250 ML BAG IVPB STA (13:06)
[2017-07-23] MEDS ORDERED: cefTRIAXone 1 gm 1 GM/100 ML BAG IVPB STA (13:06)
--- NOTE | 2017-07-23 13:21 | RAD ---
HISTORY: cough COMPARISON: No prior. FINDINGS: LUNGS: No active pulmonary disease. PLEURA: No significant pleural effusion identified, no pneumothorax apparent. CARDIOVASCULAR: Mild cardiomegaly OSSEOUS STRUCTURES: No significant abnormalities. VISUALIZED UPPER ABDOMEN: Normal. OTHER FINDINGS: None. IMPRESSION: No active disease.
[2017-07-23] MEDS ORDERED: Sodium Chloride 0.45% 1,000 ML IV SCH (13:45)
[2017-07-23] MEDS: Insulin Reg-LOW-Coverage SC SCH ×2 (16:37→22:58)
--- NOTE | 2017-07-23 16:44 | CARD ---
APPROVED REPORT EKG Measurement Heart [id number] <Conclusion> Normal sinus rhythm T wave abnormality, consider anterior ischemia
[2017-07-23] MEDS: Dextrose 5%/0.45% NS 1,000 ML IV SCH (17:59)
[2017-07-23] MEDS ORDERED: Pneumococcal 23-Valent Vaccine IM ONE (22:09)
--- NOTE | 2017-07-23 22:50 | CON ---
DATE: ORTHOPEDIC CONSULTATION HISTORY OF PRESENT ILLNESS: An 81-year-old female in the emergency room at [facility], it is approximately 5 p.m. Patient was seen in the emergency room today on 07/23/2017 after a history of fracturing her left ankle approximately 2 days ago, was walking on it. X-ray shows a well-positioned lateral malleolar fracture. Clinically, has very little discomfort medially, so this is considered stable left ankle fracture that is able to be treated conservatively without surgery by using a fracture boot to protect that left ankle and she will be able to put weight on it with a walker once we get the boot. We do not have it now, but right now, she does not have a cast for protection and for comfort. She can be admitted for observation, medical reasons, we will follow her closely. Hopefully before she goes to home to live alone, she could face something like a TCU until she gets her strength, and less swelling and less pain. FINAL DIAGNOSES: Stable left ankle fracture, compatible for conservative therapy with a walking boot once we get it. In the meantime, we will put her in posterior splint, and then once we get the boot, we could start ambulation with a walker and protective weightbearing left ankle. In fact, I told family which is the daughter who is near her bedside that it is going to take 6 to 8 weeks to heel, then we could stop the boot and then could safely live at home better. Frank Garza DO HUGO
--- NOTE | 2017-07-23 22:58 | HP ---
HISTORY OF PRESENT ILLNESS: Patient is 81 years old, has been having nausea, vomiting, diarrhea for the last three days, fell three days ago, was unable to walk. Her diarrhea persisted. She felt very weak, dizzy as she was going to pass out. She expressed that feeling and her daughter who brought her to emergency room for further evaluation. She has had episodes of three vomitus since morning. No history of fever or chills. No history of hemoptysis. No hematemesis. She had a fall three days ago, since then her left ankle has been hurting and was having difficulty walking. PAST MEDICAL HISTORY: Significant for, 1. Hypertension. 2. Insulin-dependent diabetes. 3. Hyperlipidemia. 4. History of generalized rheumatoid arthritis. 5. Anxiety disorder. ALLERGIES: SHE IS ALLERGIC TO SHELLFISH DERRIVATIVE AND SHRIMPS. MEDICATIONS AT HOME: She is on levothyroxine 137 mcg daily, metformin 500 twice a day, prednisone 5 mg daily, pravastatin 40 mg daily, BREO ELLIPTA, Protonix 40 daily, glipizide 5 mg twice a day, atenolol 25 daily, omeprazole, and lidocaine gel. SOCIAL HISTORY: She lives by herself. Her daughter is around and has been very supportive. Denies smoking, drinking, or alcohol use. PHYSICAL EXAMINATION: GENERAL: She looks pale and dehydrated. VITAL SIGNS: She has a temperature of 99.6, pulse 72, respirations 18, blood pressure 128/53. LUNGS: Bilateral fair airflow. No rhonchi or crackles. HEART: S1, S2 audible. ABDOMEN: Soft, nontender. No rebound. No guarding. NEUROLOGIC: Patient is awake and alert, able to communicate. EXTREMITIES: Bilateral leg, no edema. LABORATORY EXAM: WBC 6.1, hemoglobin 10.1, hematocrit , platelets of 130. Chemistries: Sodium 127, potassium 4.1, chloride 88, CO2 of 30. BUN 12, creatinine 0.9. Blood sugar of 43. AST 39, ALT 35. CPK is 285. BNP 1480. Urinalysis is unremarkable. CT scan of the abdomen and pelvis was done that showed minimal consolidation at the left lung base with peribronchial thickening. EKG shows normal sinus rhythm. Chest x-ray done in 05/2017, that was normal. ASSESSMENT: 1. Gastroenteritis. 2. Dehydration. 3. Hypoglycemia. 4. Status post fall secondary to generalized weakness with left distal fibular displaced fracture. 5. Hypothyroidism. PLAN: The patient will be admitted on telemetry. We will start her on IV fluids. Monitor blood sugar. We will start her on clear liquid. We will follow up her electrolytes and CBC. Ricardo Rodgers MD
[2017-07-24 07:07] LABS: BASO # 0.01 K/mm3 (0.0-2.0); BASO % 0.1 % (0.0-3.0); EOS % 0.1 % (1.5-5.0); GRAN # 4.8 (1.4-6.5); GRAN % 69.2 % (50.0-68.0); HEMOGLOBIN 9.5 g/dL (12.0-16.0); LYMPH # 1.2 (1.2-3.4); LYMPH % 16.5 % (22.0-35.0); MEAN CELL VOLUME 90.5 fl (80.0-105.0); MEAN CORPUSCULAR HEMOGLOBIN 31.1 pg (25.0-35.0); MEAN CORPUSCULAR HGB CONC 34.4 g/dl (31.0-37.0); MEAN PLATELET VOLUME 10.9 fl (7.0-11.0); MONO % 14.1 % (1.0-6.0); RBC 3.05 10^6/uL (3.5-6.1); RED CELL DISTRIBUTION WIDTH 17.4 % (11.5-14.5)
[2017-07-24 07:23] LABS: ALB/GLOB RATIO 1.1 (1.1-1.8); ALBUMIN 2.9 g/dL (3.0-4.8); ALT/SGPT 30 U/L (7-56); AST/SGOT 33 U/L (14-36); BLOOD UREA NITROGEN 7 mg/dL (7-21); CALCIUM 8.2 mg/dL (8.4-10.5); GFR AFRICAN-AMERICAN > 60; GFR NON-AFRICAN AMERICAN > 60
[2017-07-24] MEDS: Insulin Reg-LOW-Coverage SC SCH ×4 (07:30→23:27)
[2017-07-24] MEDS: Dextrose 5%/0.45% NS 1,000 ML IV SCH (08:35)
--- NOTE | 2017-07-24 08:37 | CARD ---
APPROVED REPORT EXAM: Two-dimensional and M-mode echocardiogram with Doppler and color Doppler. Other Information Quality : AverageRhythm : INDICATION Dizziness and Vertigo 2D DIMENSIONS Left Atrium (2D)4.0 (1.6-4.0cm)IVSd1.1 (0.7-1.1cm) LVDd4.9 (3.9-5.9cm)PWd1.1 (0.7-1.1cm) LVDs3.3 (2.5-4.0cm)FS (%) 31.6 % LVEF (%)59.0 (>50%) M-Mode DIMENSIONS Aortic Root2.90 (2.2-3.7cm)Aortic Cusp Exc.1.50 (1.5-2.0cm) Aortic Valve AoV Peak Gyqkjezg133.0cm/sAoV VTI38.3cm Mitral Valve MV E Aqwzsdvd62.9cm/sMV A Fsrktfzx87.2cm/sE/A ratio1.0 TDI Lateral E' Peak V3.61cm/sMedial E' Peak V4.97cm/sE/Lateral E'23.2 E/Medial E'16.9 Pulmonary Valve PV Peak Fobmdpzb99.8cm/sPV Peak Grad.3mmHg Tricuspid Valve TR Peak Hculxcyb005ty/sRAP [id number] Peak Gr.40mmHg [id number] LEFT VENTRICLE The left ventricle is normal size. There is normal left ventricular wall thickness. The left ventricular function is normal. The left ventricular ejection fraction is within the normal range. There is normal LV segmental wall motion. RIGHT VENTRICLE The right ventricle is normal size. ATRIA The left atrium size is normal. The right atrium size is normal. The interatrial septum is intact with no evidence for an atrial septal defect. AORTIC VALVE The aortic valve is normal in structure. MITRAL VALVE The mitral valve is normal in structure. Mitral regurgitation is mild. TRICUSPID VALVE The tricuspid valve is normal in structure. There is trace tricuspid regurgitation. There is mild-moderate pulmonary hypertension. PULMONIC VALVE The pulmonic valve is not well visualized. There is trace pulmonic valvular regurgitation. GREAT VESSELS The aortic root is normal in size. PERICARDIAL EFFUSION There is no pericardial effusion. <Conclusion> The left ventricle is normal size. There is normal left ventricular wall thickness. The left ventricular function is normal. Mitral regurgitation is mild.
[2017-07-24] MEDS: Levothyroxine 25 MCG TAB PO SCH (08:42)
[2017-07-24] MEDS: Levothyroxine 112 MCG TAB PO SCH (08:42)
[2017-07-24] MEDS ORDERED: LEVOTHYROXINE SODIUM 137 MCG PO SCH (10:00)
--- NOTE | 2017-07-24 12:46 | CT ---
PROCEDURE: CT Chest without contrast HISTORY: sob ?pneumonia COMPARISON: None. TECHNIQUE: Contiguous axial images were obtained through the chest without intravenous contrast enhancement. Sagittal and coronal reconstructions were performed. Radiation dose (DLP): 256 mGy-cm. This CT exam was performed using one or more of the following dose reduction techniques: Automated exposure control, adjustment of the mA and/or kV according to patient size, and/or use of iterative reconstruction technique. FINDINGS: LUNGS: Patchy consolidation is seen at both lung bases. Findings are suspicious for pneumonia. There is also peribronchial thickening in both lower lobes. MEDIASTINUM: Unremarkable thoracic aorta. No aneurysm. Coronary artery calcifications. Main pulmonary artery unremarkable. No vascular congestion. No lymphadenopathy. PLEURA: No pleural fluid. No pneumothorax. BONES: No fracture. No destructive lesion. UPPER ABDOMEN: Grossly unremarkable. OTHER FINDINGS: None. IMPRESSION: Patchy consolidation is seen at both lung bases. Findings are suspicious for pneumonia. There is also peribronchial thickening in both lower lobes.
[2017-07-24] MEDS: cefTRIAXone 1 gm 1 GM/100 ML BAG IVPB SCH (13:06)
--- NOTE | 2017-07-24 14:27 | PN ---
DATE: SUBJECTIVE: Patient is an 81-year-old female, seen and examined. Lying in bed. Seems to be comfortable. Eating and tolerating. Mild shortness of breath. Complains of cough with whitish to yellow phlegm. No fever or chills. PHYSICAL EXAMINATION VITAL SIGNS: Patient is afebrile. Pulse 63, respirations 20, blood pressure 101/50. LUNGS: Decreased airflow at bases. HEART: S1 and S2 audible. ABDOMEN: Soft, nontender. No rebound, no guarding. NEUROLOGIC: Patient is awake, alert, oriented, communicative. LABORATORY EXAMINATION: WBC 7.0, hemoglobin 9.5, hematocrit 27.6, platelets of 130. Chemistry: Sodium 129, potassium 4.4, chloride 97, CO2 26, BUN 7, creatinine 0.9, blood sugar of 177. ASSESSMENT AND PLAN: 1. Status post syncope and fall. 2. Gastroenteritis. 3. Dehydration. 4. Hypoglycemia. 5. Hypertension. 6. Insulin-dependent diabetes mellitus. 7. Left fibular fracture. 8. Hyponatremia. 9. Anemia. Blood culture and urine cultures are negative. I will decrease IV fluids and encourage p.o. intake. Order for CT of the chest to determine if she needs antibiotics. We will continue on doxy and Rocephin for now. We will reevaluate patient in a.m. Ricardo Rodgers MD
--- NOTE | 2017-07-24 17:19 | CP.PCM.PN ---
Subjective - Date & Time of Evaluation Date of Evaluation: 07/24/17 Time of Evaluation: 17:18 - Subjective Subjective: PGY-[address] Rodgers CC: Anxiety 81 F, admitted for syncope and fall. She was found to have L fib fracture, gastroenteritis, dehydration, and hypoglycemia. CT chest showed patchy consolidation in both lung. She is on doxy and rocephin. Nurse paged me because pt is anxious and pt endorsed that she is on chronic librium. O: VSS Card: regular S1 S2 Pulm: CTA b/l, decrease lung sound lung bases b/l Abd: soft NTND A/P: Anxiety I have called [facility] to verify her meds. She was prescibed librium 10 since 2014. Her last refill was on july 06 for 30 days. Restart Librium per Dr Rodgers Objective - Vital Signs/Intake and Output Vital Signs (last 24 hours): Temp Pulse Resp BP Pulse Ox 98.1 F 63 18 137/61 96 07/24/17 17:13 07/24/17 17:13 07/24/17 17:13 07/24/17 17:13 07/24/17 00:01 Intake and Output: 07/24/17 07/24/17 06:59 18:59 Intake Total 480 Output Total 2200 Balance -1720 - Medications Medications: Current Medications Acetaminophen (Tylenol 325mg Tab) 650 mg PO Q6H PRN PRN Reason: Fever >100.4 F Last Admin: 07/24/17 00:21 Dose: 650 mg Acetaminophen (Tylenol 325mg Tab) 650 mg PO Q6H PRN PRN Reason: Fever >100.4 F Atenolol (Tenormin) 25 mg PO DAILY [facility] Last Admin: 07/24/17 10:09 Dose: 25 mg Doxycycline Hyclate 100 mg/ (Sodium Chloride) 100 mls @ 100 mls/hr IVPB Q12 [facility] PRN Reason: Protocol Last Admin: 07/24/17 10:03 Dose: 100 mls/hr Ceftriaxone Sodium (Rocephin 1 Gram Ivpb) 1 gm in 100 mls @ 100 mls/hr IVPB DAILY [facility] PRN Reason: Protocol Stop: 07/28/17 10:59 Last Admin: 07/24/17 13:06 Dose: 100 mls/hr Insulin Human Regular (Humulin R Low) 0 units SC ACHS [facility] PRN Reason: Protocol Last Admin: 07/24/17 17:05 Dose: Not Given Levothyroxine Sodium (Synthroid) 112 mcg PO ACB [facility] Last Admin: 07/24/17 08:42 Dose: 112 mcg Levothyroxine Sodium (Synthroid) 25 mcg PO ACB [facility] Last Admin: 07/24/17 08:42 Dose: 25 mcg Ondansetron HCl (Zofran Inj) 4 mg IVP Q6H PRN PRN Reason: Nausea/Vomiting Pantoprazole Sodium (Protonix Inj) 40 mg IVP DAILY [facility] Last Admin: 07/24/17 10:49 Dose: 40 mg - Labs Labs: 07/24/17 06:30 07/24/17 06:30
[2017-07-25] MEDS ORDERED: guaiFENesin 100 mg/5 ml Syrup UD PO STA (06:40)
[2017-07-25] MEDS: Insulin Reg-LOW-Coverage SC SCH ×4 (07:56→22:43)
[2017-07-25] MEDS: Levothyroxine 25 MCG TAB PO SCH (08:02)
[2017-07-25] MEDS: Levothyroxine 112 MCG TAB PO SCH (08:02)
[2017-07-25] MEDS: cefTRIAXone 1 gm 1 GM/100 ML BAG IVPB SCH (09:42)
[2017-07-25] MEDS: guaiFENesin 100 mg/5 ml Syrup UD PO PRN ×2 (15:28→21:33)
--- NOTE | 2017-07-25 17:55 | PN ---
DATE: SUBJECTIVE: Patient is 81 years old, seen and examined, complaint of cough and congestion, cough is productive. No fever, nausea or vomiting. She seems to be eating well. PHYSICAL EXAMINATION: VITAL SIGNS: She is afebrile. Pulse 55, respirations 18, blood pressure 146/64. LUNGS: Bilateral soft crackles in lower lung region. HEART: S1, S2 audible. ABDOMEN: Soft, nontender, no rebound, no guarding. NEUROLOGICAL: Patient is awake, alert, oriented, communicative. EXTREMITIES: Bilateral leg, no edema. LABORATORY DATA: WBC 7, hemoglobin 9.5, hematocrit 27.6, platelet 130. Chemistry: Blood sugar is 151. Blood cultures and urine cultures are negative. CT scan of the chest was done that shows patchy consolidation is seen at both lung bases, suspicious for pneumonia. ASSESSMENT: 1. Status post fall and left fibular fracture. 2. Bilateral pneumonia. 3. Gastroenteritis. 4. Anxiety disorder. 5. Ykl-pjhftsi-ppjuumbqc diabetes. PLAN: We will continue patient on Rocephin. We will resume her usual medication. Out of bed to chair. Physical Therapy evaluation has been requested. We will give analgesic as needed. I will request ID evaluation also and once patient becomes stable, she should be going to TCU for close monitoring and physical therapy. Ricardo Rodgers MD
[2017-07-26] MEDS: Insulin Reg-LOW-Coverage SC SCH ×4 (08:56→22:09)
[2017-07-26] MEDS: cefTRIAXone 1 gm 1 GM/100 ML BAG IVPB SCH (09:03)
[2017-07-26] MEDS: Levothyroxine 25 MCG TAB PO SCH (09:04)
[2017-07-26] MEDS: Levothyroxine 112 MCG TAB PO SCH (09:05)
[2017-07-26] MEDS: guaiFENesin 100 mg/5 ml Syrup UD PO PRN (10:11)
--- NOTE | 2017-07-26 12:16 | CON ---
DATE: 07/26/2017 LOCATION: The patient is seen in [facility], bed 2. CHIEF COMPLAINT: Weakness for several days. HISTORY OF PRESENT ILLNESS: This is an 81-year-old female, the patient was admitted on 07/23/2017 with a diagnosis of congestive heart failure, pneumonia, syncope, ankle fracture. Infectious Disease consultation requested. The patient states that she has been having cough and nonproductive. There is mild shortness of breath. No chest pain. No abdominal pain, diarrhea or constipation. She has the ankle pain. No headaches. REVIEW OF SYSTEMS: A 12-point review of systems is noted and reviewed. She is not having any diarrhea or constipation. She did have nausea and vomiting. No bright red blood per rectum. No dysuria or frequency at this time. No headaches. PAST MEDICAL HISTORY: Significant for anxiety and rheumatoid arthritis, diabetes mellitus and gastroenteritis and coronary artery disease, congestive heart failure, hypertension, hyperlipidemia, hypothyroidism, cataract and migraine. PAST SURGICAL HISTORY: Significant for hysterectomy. ALLERGIES: THE PATIENT IS ALLERGIC TO SHELLFISH AND SHRIMP. MEDICATIONS AT HOME: Include methotrexate and Cozaar and insulin, Librium, levothyroxine and metformin and prednisone, pravastatin and omeprazole. PHYSICAL EXAMINATION: GENERAL: She is in bed, answering questions appropriately, nontoxic. VITAL SIGNS: Temperature of 98, blood pressure is 136/60, respiratory rate of 20 and heart rate of 56. HEENT: Examination of HEENT is unremarkable. NECK: Supple. LUNGS: Have decreased breath sounds. HEART: Normal S1 and S2. ABDOMEN: Soft, nontender. No rebound or guarding. No masses. LABORATORY DATA: Laboratory examination reveals a white count of 6.1, hemoglobin of 10, platelets of 130, 85% granulocytosis. Blood gases are noted. Chemistries revealed the patient has a BUN of 7, creatinine of 0.9 and glucose was elevated. Urinalysis is noted. Blood cultures are negative. Urine cultures are negative. The patient had a CAT scan of the chest, which revealed bilateral infiltrates, although She also had a chest x-ray and which was negative. ASSESSMENT AND PLAN: An 81-year-old female with anxiety; history of gastroenteritis; history of rheumatoid arthritis, on methotrexate; diabetes mellitus; hypothyroidism; coronary artery disease; congestive heart failure; hypertension; hyperlipidemia; history of migraine and cataract. 1. Has bilateral community-acquired pneumonia. 2. Left fibular fracture status post fall. We will treat the patient with ceftriaxone and doxycycline and as far the cultures are negative, we will check on the procalcitonin, may be able to change the doxycycline to p.o. within the next few 24 hours and we will make further recommendations. We will follow with you. Javier Rothman MD
--- NOTE | 2017-07-26 12:54 | PCM.RRT ---
<Dunia Suarez - Last Filed: 07/26/17 12:48> SQL DEVELOPER Nurse Assessment - Situation Date: 07/26/17 Time SQL DEVELOPER was called: 12:27 SQL DEVELOPER Responder Arrival Time: 12:32 SQL DEVELOPER Location:: [address] [place] [address] Room Number: 376-2 SQL DEVELOPER Reason for Call: Change in Mental Status SQL DEVELOPER Called By: RN - IV IV Inserted during SQL DEVELOPER?: No - Respiratory Oxygen Delivery Method: Nasal Cannula @L/min Oxygen Flow Rate: 2 Received Nebulizer Treatments:: No Was the Patient Ventilated with Bag/Mask 100% O2?: No Secretions Suctioned?: No Was the Patient Intubated?: No Was the Patient Placed on a Ventilator?: No - Diagnostic Test Ordered EKG: No Chest X-Ray: No CT Scan: No CPR started during SQL DEVELOPER?: No - Vital Signs Vital Sign: Rapid Response Vital Sign Blood Pressure 169/81 Pulse Rate 58 Respiratory Rate 16 Temperature 97 F Oxygen Saturation 100 - Finger Stick Blood Glucose Finger Stick Blood Glucose: 144 - Time SQL DEVELOPER Ended Time SQL DEVELOPER Ended: 12:34 - Vital Signs at end of SQL DEVELOPER Vital Signs at end of SQL DEVELOPER: Rapid Response End Vital Sign Blood Pressure 143/65 Pulse Rate 53 Respiratory Rate 16 Temperature 97.2 F O2 Sat by Pulse Oximetry 100 - Recommendations Notifications: Attending Physician I.Reason for SQL DEVELOPER - A) Acute Change in Patient: Subjective: 81 F with a PMHx of CHF, HTN, HLD, DM2, and RA admitted for syncope and fall. She was found to have L fib fracture, gastroenteritis, dehydration, and hypoglycemia. CT chest showed patchy consolidation in both lung. She is on doxy and rocephin. SQL DEVELOPER was called as nursing staff attempted to wake pt up, howere pt was unresponsive at the time. Once sternal rub was applied, pt awoke and was AAOx3. Pt had Librium administered earlier this morning, likely the cause of her somnolence. VSS, fingerstick 144. Pt is conversational and awake. SQL DEVELOPER was subsequently ended. - Respiratory Oxygen Delivery Method: Nasal Cannula @L/min Oxygen Flow Rate: 2 - Constitutional Appears: No Acute Distress - Head Head Exam: ATRAUMATIC, NORMAL INSPECTION, NORMOCEPHALIC - Eyes Eye Exam: EOMI, Normal appearance, PERRL - Respiratory Exam Respiratory Exam: Clear to Ausculation Bilateral, NORMAL BREATHING PATTERN - Cardiovascular Exam Cardiovascular Exam: RRR, +S1, +S2 - GI/Abdominal Exam GI & Abdominal Exam: Soft, Normal Bowel Sounds. absent: Tenderness - Neurological Exam Neurological Exam: Alert, Awake, CN II-XII Intact, Oriented x3 <KenArabella B - Last Filed: 07/26/17 15:06> SQL DEVELOPER Nurse Assessment - Vital Signs Vital Sign: Rapid Response Vital Sign Blood Pressure 169/81 Pulse Rate 58 Respiratory Rate 16 Temperature 97 F Oxygen Saturation 100 - Vital Signs at end of SQL DEVELOPER Vital Signs at end of SQL DEVELOPER: Rapid Response End Vital Sign Blood Pressure 143/65 Pulse Rate 53 Respiratory Rate 16 Temperature 97.2 F O2 Sat by Pulse Oximetry 100 Attending/Attestation - Attestation I have personally seen and examined this patient.: Yes I have fully participated in the care of the patient.: Yes I have reviewed all pertinent clinical information, including history, physical exam and plan: Yes Notes (Text): I have seen and examined the patient with the resident. Agree with the note above. Patient is now alert, awake and oriented x3.
--- NOTE | 2017-07-26 16:29 | PN ---
DATE: SUBJECTIVE: The patient is 81 years old, seen and examined. Yesterday's event noted. The patient was confused, disoriented, agitated last night, was given Ativan and Risperdal. Seems to be doing a little better. Still coughing. PHYSICAL EXAMINATION VITAL SIGNS: She is afebrile, pulse 50, respirations 18, blood pressure 169/81. HEENT: She has nonicteric sclerae. [place] conjunctivae. LUNGS: Bilateral few expiratory rhonchi. HEART: S1 and S2 audible. ABDOMEN: Soft. Nontender. No rebound. No guarding. NEUROLOGIC: The patient is awake, alert, oriented, communicative. LABORATORY EXAM: Blood sugar is 137. ASSESSMENT: 1. Status post syncope and fall and left fibular fracture. 2. Hypertension. 3. Insulin-dependent diabetes. 4. Bilateral pneumonia. 5. Status post gastroenteritis. PLAN: We will continue the patient on current antibiotic. She is on Rocephin and doxycycline, we will continue that. We encouraged physical therapy, request for TCU evaluation also. Ricardo Rodgers MD
[2017-07-27] MEDS: guaiFENesin 100 mg/5 ml Syrup UD PO PRN ×2 (02:47→18:48)
[2017-07-27 06:46] VITALS: RESP 20
[2017-07-27] MEDS: Levothyroxine 112 MCG TAB PO SCH (08:42)
[2017-07-27] MEDS: Insulin Reg-LOW-Coverage SC SCH ×3 (08:42→15:57)
[2017-07-27] MEDS: Levothyroxine 25 MCG TAB PO SCH (08:42)
[2017-07-27] MEDS: cefTRIAXone 1 gm 1 GM/100 ML BAG IVPB SCH (09:18)
[2017-07-27 09:47] LABS: BASO # 0.03 K/mm3 (0.0-2.0); BASO % 0.5 % (0.0-3.0); EOS # 0.2 (0.0-0.7); EOS % 3.3 % (1.5-5.0); GRAN # 2.36 (1.4-6.5); GRAN % 41.2 % (50.0-68.0); HEMOGLOBIN 10.9 g/dL (12.0-16.0); LYMPH # 1.9 (1.2-3.4); LYMPH % 32.2 % (22.0-35.0); MEAN CELL VOLUME 92.5 fl (80.0-105.0); MEAN CORPUSCULAR HEMOGLOBIN 30.3 pg (25.0-35.0); MEAN CORPUSCULAR HGB CONC 32.7 g/dl (31.0-37.0); MEAN PLATELET VOLUME 10.6 fl (7.0-11.0); MONO # 1.3 (0.1-0.6); MONO % 22.8 % (1.0-6.0); PLATELET COUNT 291 10^3/uL (120.0-450.0); RED CELL DISTRIBUTION WIDTH 18.1 % (11.5-14.5); WHITE BLOOD COUNT 5.7 10^3/ul (4.5-11.0)
[2017-07-27 10:05] LABS: ALB/GLOB RATIO 1.3 (1.1-1.8); ALBUMIN 3.9 g/dL (3.0-4.8); ALT/SGPT 41 U/L (7-56); AST/SGOT 33 U/L (14-36); BLOOD UREA NITROGEN 7 mg/dL (7-21); CALCIUM 9.8 mg/dL (8.4-10.5); GFR AFRICAN-AMERICAN > 60; GFR NON-AFRICAN AMERICAN > 60
[2017-07-27 10:13] LABS: FREE T4 1.04 ng/dL (0.78-2.19)
[2017-07-27 10:34] LABS: BAND 2 % (0-2); EOSINOPHIL 4 % (0.0-3.0); LYMPHOCYTE 35 % (22.0-35.0); MONOCYTE 18 % (1.0-6.0); NEUTROPHIL 41 % (50.0-70.0)
[2017-07-27 10:35] LABS: PLATELET ESTIMATE NORMAL (NORMAL)
--- NOTE | 2017-07-27 10:56 | PN ---
DATE: 07/25/2017 SUBJECTIVE: The patient is awaiting the walking boot for a fractured left ankle that is stable with a lateral malleolus fracture. No medial malleolar fracture. I had to take the posterior splint off because that was irritating her, so she feels better and less pain without that fiberglass splint that irritates her in the posterior part of the heel and the Achilles tendon area. So hopefully we will have a walking boot. In the meantime, we could get her up out of bed. No prolonged ambulation. She can put weight on her left foot as far as she is protected by holding her so she does not trip and fall because she does have a little confusion, so we will wait for the fracture brace to come in and put her in that, she will be more comfortable and could ambulate with a walker. Partial weightbearing on left ankle. Frank Garza DO
[2017-07-27] MEDS: Albuterol-Ipratrop 3 mg / 0.5 (3 ml) UD IH SCH (13:15)
--- NOTE | 2017-07-27 18:50 | PN ---
DATE: SUBJECTIVE: The patient is 81 years old, seen and examined, seems to be comfortable, still has cough and congestion, eating and tolerating. PHYSICAL EXAMINATION: VITAL SIGNS: She is afebrile, pulse 54, respirations 20, blood pressure 157/66. LUNGS: Bilateral fair airflow with soft crackle, more pronounced posteriorly. HEART: S1 and S2 audible. ABDOMEN: Soft, nontender, no rebound, no guarding. NEUROLOGICAL: The patient is awake and alert, able to communicate. EXTREMITIES: Left leg is in the . LABORATORY DATA: WBC 5.7, hemoglobin 10.9, hematocrit 33.3, platelets of 291. Chemistry: Sodium 140, potassium 4.9, chloride 100, CO2 of 28, BUN 7, creatinine 0.9, blood sugar of 151. Blood cultures and urine cultures are negative. CT scan of the chest shows bilateral infiltrates. ASSESSMENT AND PLAN: 1. Status post fall secondary to hypoglycemia and poor oral intake. 2. Community acquired pneumonia. 3. Insulin-dependent diabetes. 4. Hypertension. 5. Hypothyroidism. 6. Status post fall and left fibular fracture. PLAN: We will discontinue her Telemetry and discontinue beta-hector since she is bradycardic. Will continue antibiotic. Continue to monitor blood sugar, also discontinue telemetry. visitor services information assistant to make a plan for subacute rehab. Ricardo Rodgers MD
--- NOTE | 2017-07-27 19:15 | CP.PCM.PN ---
Subjective - Date & Time of Evaluation Date of Evaluation: 07/27/17 Time of Evaluation: 10:45 - Subjective Subjective: Comfortable, no fevers, less pain in the left foot and leg, still with cough but a little less. Objective - Vital Signs/Intake and Output Vital Signs (last 24 hours): Temp Pulse Resp BP Pulse Ox 98 F 54 L 20 157/66 H 99 07/27/17 12:00 07/27/17 12:00 07/27/17 12:00 07/27/17 12:00 07/26/17 17:18 - Medications Medications: Current Medications Acetaminophen (Tylenol 325mg Tab) 650 mg PO Q6H PRN PRN Reason: Fever >100.4 F Last Admin: 07/27/17 18:46 Dose: 650 mg Acetaminophen (Tylenol 325mg Tab) 650 mg PO Q6H PRN PRN Reason: Fever >100.4 F Albuterol/Ipratropium (Duoneb 3 Mg/0.5 Mg (3 Ml) Ud) 3 ml IH [id number] [facility] Last Admin: 07/27/17 13:15 Dose: 3 ml Chlordiazepoxide (Librium) 10 mg PO DAILY [facility] PRN Reason: Protocol Last Admin: 07/27/17 09:23 Dose: 10 mg Doxycycline Hyclate (Doryx) 100 mg PO Q12 [facility] Guaifenesin (Robitussin) 100 mg PO Q6H PRN PRN Reason: Cough Last Admin: 07/27/17 18:48 Dose: 100 mg Ceftriaxone Sodium (Rocephin 1 Gram Ivpb) 1 gm in 100 mls @ 100 mls/hr IVPB DAILY [facility] PRN Reason: Protocol Stop: 07/28/17 10:59 Last Admin: 07/27/17 09:18 Dose: 100 mls/hr Insulin Human Regular (Humulin R Low) 0 units SC ACHS [facility] PRN Reason: Protocol Last Admin: 07/27/17 15:57 Dose: Not Given Levothyroxine Sodium (Synthroid) 112 mcg PO ACB [facility] Last Admin: 07/27/17 08:42 Dose: 112 mcg Levothyroxine Sodium (Synthroid) 25 mcg PO ACB [facility] Last Admin: 07/27/17 08:42 Dose: 25 mcg Lorazepam (Ativan) 0.5 mg IVP Q6H PRN; Protocol PRN Reason: Anxiety Last Admin: 07/26/17 06:37 Dose: 0.5 mg Ondansetron HCl (Zofran Inj) 4 mg IVP Q6H PRN PRN Reason: Nausea/Vomiting Pantoprazole Sodium (Protonix Ec Tab) 40 mg PO ACB [facility] Risperidone (Risperdal Tab) 0.25 mg PO BID [facility] PRN Reason: Protocol Last Admin: 07/27/17 17:26 Dose: 0.25 mg - Labs Labs: 07/27/17 09:00 07/27/17 09:00 - Constitutional Appears: Chronically Ill - Head Exam Head Exam: NORMAL INSPECTION - Eye Exam Eye Exam: Normal appearance - ENT Exam ENT Exam: Mucous Membranes Moist - Neck Exam Neck Exam: absent: Meningismus - Respiratory Exam Respiratory Exam: Decreased Breath Sounds - Cardiovascular Exam Cardiovascular Exam: +S1, +S2 - GI/Abdominal Exam GI & Abdominal Exam: Soft. absent: Tenderness - Extremities Exam Additional comments: right foot with bandages in place Assessment and Plan - Assessment and Plan (Free Text) Plan: Assessment bilateral community-acquired pneumonia, slowly improving left fibular fracture anxiety disorder chronic CHF HTN rheumatoid arthritis on methotrexate dyslipidemia migraine cataracts Plan continue Rocephin and Doxycycline day 2; cultures are negative reviewed CXR; complete 5-7 days of antibiotics follow up plan for the ankle fracture
[2017-07-28] MEDS: Insulin Reg-LOW-Coverage SC SCH ×4 (01:13→17:35)
[2017-07-28] MEDS: guaiFENesin 100 mg/5 ml Syrup UD PO PRN (02:45)
[2017-07-28] MEDS: Albuterol-Ipratrop 3 mg / 0.5 (3 ml) UD IH SCH ×2 (07:12→13:58)
[2017-07-28] MEDS ORDERED: Pantoprazole 40 mg EC Tab PO SCH (07:30)
[2017-07-28] MEDS: Levothyroxine 112 MCG TAB PO SCH (08:24)
[2017-07-28] MEDS: Levothyroxine 25 MCG TAB PO SCH (08:24)
[2017-07-28] MEDS: cefTRIAXone 1 gm 1 GM/100 ML BAG IVPB SCH (10:30)
[2017-07-28 11:28] VITALS: BP 143/62; PULSE 68; TEMP 98.5; O2SAT 97
--- NOTE | 2017-07-28 15:38 | PN ---
DATE: SUBJECTIVE: The patient is 81 years old, seen and examined, sitting in chair, seems to be comfortable. Quoting daughter, she is not sleeping well. She is less confused in the evening as compared to previous 2 to 3 nights. PHYSICAL EXAMINATION: GENERAL: She is afebrile. Pulse 68, respirations 20, blood pressure 143/62. LUNGS: Bilateral good airflow. No rhonchi or crackle. HEART: S1 and S2 audible. ABDOMEN: Soft, nontender. No rebound. No guarding. NEUROLOGIC: The patient is awake and alert, able to communicate. LABORATORY EXAM: WBC is 5.7, hemoglobin 10.9, hematocrit 33, and platelets of 291. Chemistry: Blood sugar is 155. She has coag negative staph in the blood. ASSESSMENT: 1. Bilateral pneumonia. 2. Status post altered mental status. 3. Status post fall and had left fibular fracture. 4. Aup-fgtpwiv-hlyoyjorf diabetes. 5. History of hypertension. 6. History of rheumatoid arthritis on methotrexate. 7. Hyperlipidemia. 8. Sundowning and mild dementia. PLAN: The patient is currently on doxycycline. The patient is on nebulizer treatment. We will monitor her blood sugar. Gave Risperdal to 0.5 at bedtime and 0.25 in the morning. Awaiting the boot for the left foot and then may be transferred to TCU today. Ricardo Rodgers MD
--- NOTE | 2017-07-29 00:51 | PN ---
DATE: SUBJECTIVE: The patient was seen earlier this morning in room 562, bed 1. She is doing well. No nausea. No vomiting. No chest pain. OBJECTIVE: VITAL SIGNS: On exam; temperature is 98, blood pressure is 140/60, respiratory rate of 20, heart rate of 59. HEENT: Unremarkable. NECK: Supple. LUNGS: Have decreased breath sounds. HEART: Normal S1 and S2. ABDOMEN: Soft and nontender. LABORATORY DATA: Reveals a white count of 5.7, hemoglobin of 10, platelets of 291. Chemistries reveals a BUN of 7 and creatinine of 0.9. Urinalysis is noted. Microbiology revealed coag-negative staph in one bottle. ASSESSMENT AND PLAN: This is an 81-year-old female with bilateral community-acquired pneumonia, improving; left fibular fracture, anxiety, chronic congestive heart failure, hypertension; rheumatoid arthritis, on methotrexate; dyslipidemia, migraine headaches and cataracts. Day #3 of doxycycline. Discontinue ceftriaxone with coagulase-negative staphylococcus, most consistent with a contamination. Patient states she has had no intravascular devices and the patient did have a low procalcitonin . We will follow closely with you. Javier Rothman MD
== END 2017-07-28 19:07 | DRG 194 ==
LOC: ED 09:30 → ERH 13:35 → 2RNO 19:04 → 3RSO 07-25 21:10 → 5RNO 07-27 14:21
PROVIDERS: ADMIT Internal Medicine; ATTEND Internal Medicine
PROC: 3E0F7GC Introduction of Other Therapeutic Substance into Respiratory Tract, Via Natural or Artificial Opening (ICD-10-PCS; principal; 2017-07-27)
DX: J18.9 Pneumonia, unspecified organism (principal); S82.402A Unspecified fracture of shaft of left fibula, initial encounter for closed fracture; E87.1 Hypo-osmolality and hyponatremia; F05 Delirium due to known physiological condition; W19.XXXA Unspecified fall, initial encounter; E78.5 Hyperlipidemia, unspecified; M06.9 Rheumatoid arthritis, unspecified; E86.0 Dehydration; E11.649 Type 2 diabetes mellitus with hypoglycemia without coma; E03.9 Hypothyroidism, unspecified; I50.9 Heart failure, unspecified; I11.0 Hypertensive heart disease with heart failure; I25.10 Atherosclerotic heart disease of native coronary artery without angina pectoris; K52.9 Noninfective gastroenteritis and colitis, unspecified; F03.90 Unspecified dementia, unspecified severity, without behavioral disturbance, psychotic disturbance, mood disturbance, and anxiety; D64.9 Anemia, unspecified; E11.36 Type 2 diabetes mellitus with diabetic cataract; G43.909 Migraine, unspecified, not intractable, without status migrainosus; F41.9 Anxiety disorder, unspecified; Y92.009 Unspecified place in unspecified non-institutional (private) residence as the place of occurrence of the external cause; Z79.4 Long term (current) use of insulin; Z79.899 Other long term (current) drug therapy; Z90.710 Acquired absence of both cervix and uterus

== ENCOUNTER 2017-07-28 19:07 | Inpatient (IN) | payer MEDICARE, OTHER ==
[2017-07-28] MEDS: Insulin Reg-LOW-Coverage SC SCH (22:24)
[2017-07-28 23:30] VITALS: BMI 20.6
[2017-07-29] MEDS: Albuterol-Ipratrop 3 mg / 0.5 (3 ml) UD IH SCH ×4 (03:35→19:28)
[2017-07-29] MEDS: Levothyroxine 112 MCG TAB PO SCH (05:35)
[2017-07-29] MEDS: Levothyroxine 25 MCG TAB PO SCH (05:35)
[2017-07-29] MEDS: Pantoprazole 40 mg EC Tab PO SCH (05:35)
[2017-07-29] MEDS: Insulin Reg-LOW-Coverage SC SCH ×4 (06:38→22:37)
[2017-07-30] MEDS: Albuterol-Ipratrop 3 mg / 0.5 (3 ml) UD IH SCH ×4 (02:12→20:27)
--- NOTE | 2017-07-30 02:47 | CON ---
DATE: 07/29/2017 ORTHOPEDIC CONSULT HISTORY OF PRESENT ILLNESS: The patient is currently in room 303, bed 1. The history is that, on 07/23/2017, she fell and sustained a stable fracture of her lateral malleolus of the left ankle and was treated with a posterior splint. It was a stable injury, so she could put some weight on it, and we were waiting for the fracture boot to come in and just came in yesterday, so which was 07/28/2017, and today is 07/29/2017, she is in TCU floor where she was admitted on 07/28/2017. She will be going for physical therapy with the fracture boot on that left ankle. This is a nondisplaced fracture that should do well with conservative therapy with a walking boot, weightbearing to tolerance, because there is no pain on the medial malleolus. It is just confined to the left ankle of the lateral malleolus. We will get an x-ray next week before she goes home to see how it is doing. The date of the fracture was approximately 07/23/2017. She was admitted to the TCU on 07/28/2017 and today's date is 07/29/2017. She also has a fracture of her left ankle where she could do physical therapy, ambulate with a walking boot. So the left ankle fracture, stable. Frank Garza DO
--- NOTE | 2017-07-30 05:00 | HP ---
DATE OF EXAM: HISTORY OF PRESENT ILLNESS: The patient is an 81-year-old, who started to have nausea, vomiting and diarrhea. She was very dehydrated. She passed out at home and sustained fracture of left fibula, has been walking on that. Because of her increasing weakness, nausea and diarrhea, daughter brought her to emergency room. She was found to be hypoglycemic. She was also found to have bilateral infiltrates. She was started on IV antibiotics, IV fluids. She was given antiemetics. Because of her difficulty walking secondary to left fibular fracture, she was transferred to TCU for rehab and completion of course of antibiotics. PAST MEDICAL HISTORY: She has significant past medical history for; 1. Zys-ybunxpl-zemvggjay diabetes. 2. Hypertension. 3. Hyperlipidemia. 4. Generalized rheumatoid arthritis, on methotrexate. 5. Anxiety disorder. ALLERGIES: SHE IS ALLERGIC TO SHELLFISH DERIVATIVES AND SHRIMPS. MEDICATIONS AT HOME: She is on, 1. Levothyroxine 137 mcg daily. 2. Metformin 500 twice a day. 3. Prednisone 5 mg daily. 4. Pravastatin 40 mg daily. 5. Breo Ellipta. 6. Omeprazole 40 mg daily. 7. Lidocaine gel to the joints. SOCIAL HISTORY: She lives by herself; however, she has 2 daughters, one is very close to her. PHYSICAL EXAMINATION: GENERAL: She is awake, alert, oriented, communicative. VITAL SIGNS: She is afebrile, pulse 80, respirations 16, blood pressure 111/67. LUNGS: Bilateral fair air flow with soft crackle in the left middle to lower lung region posteriorly. ABDOMEN: Soft, nontender. No rebound. No guarding. NEUROLOGIC: She is awake and alert, able to communicate. LABORATORY DATA: Blood sugar is 214. ASSESSMENT: 1. Bilateral pneumonia. 2. Status post fall with left fibular fracture. 3. Aba-igjxsbn-rtcwndocb diabetes. 4. Hypertension. 5. Hyperlipidemia. 6. Rheumatoid arthritis. PLAN: We will continue patient on doxycycline, nebulizer treatment. Continue her on Protonix. Continue physical therapy and gait training. Ricardo Rodgers MD
[2017-07-30] MEDS: Levothyroxine 25 MCG TAB PO SCH (05:36)
[2017-07-30] MEDS: Levothyroxine 112 MCG TAB PO SCH (05:36)
[2017-07-30] MEDS: Pantoprazole 40 mg EC Tab PO SCH (05:36)
[2017-07-30] MEDS: Insulin Reg-LOW-Coverage SC SCH ×4 (06:54→21:48)
--- NOTE | 2017-07-30 08:58 | CON ---
DATE: LOCATION: Patient is seen earlier today in room 303. CHIEF COMPLAINT: Weakness times several days. HISTORY OF PRESENT ILLNESS: This is an 81-year-old female with a past medical history significant for congestive heart failure, syncope, ankle fracture was just diagnosed, and patient with rheumatoid arthritis, diabetes mellitus, gastroenteritis, coronary artery disease, migraine, cataract, and hypothyroidism, and patient was admitted, had ankle fracture boot in, and was given a course of antibiotics, now transferred to transitional care for physical therapy. REVIEW OF SYSTEMS: A 12-point review of systems is noted and performed and reviewed. Patient has no diarrhea. No constipation. No bright red blood per rectum. No melena. No fevers. No chills. No dysuria or frequency. No headaches or blurred vision. PAST MEDICAL HISTORY: Significant for anxiety, rheumatoid arthritis, diabetes mellitus, gastroenteritis, coronary artery disease, congestive heart failure, hypertension, hyperlipidemia, hypothyroidism, cataract, and migraine. PAST SURGICAL HISTORY: Significant for hysterectomy. ALLERGIES: PATIENT IS ALLERGIC TO SHELLFISH AND SHRIMP. MEDICATIONS: Reviewed. PHYSICAL EXAMINATION: GENERAL: Patient is in bed. VITAL SIGNS: Temperature of 98, blood pressure 150/70, respiratory rate of 20, heart rate of 69. HEENT: Unremarkable. NECK: Supple. LUNGS: Have decreased breath sounds. HEART: Normal S1 and S2. ABDOMEN: Soft and nontender. No organomegaly. No rebound. No guarding. No masses. LABORATORY DATA: Reveals a white count of 6.1, hemoglobin of 10, platelets of 130 and . Chemistries are noted with creatinine of 0.9. Urinalysis . Microbiology reveals a coag-negative staph in blood. Urine culture is negative. ASSESSMENT AND PLAN: This is an 81-year-old female who was seen earlier this morning in 303 with a history of heart failure, rheumatoid arthritis, diabetes, gastroenteritis, migraine, cataract, hypothyroidism, and coronary artery disease. Day #4 of doxycycline, with bilateral community-acquired pneumonia and left fibular fracture. Day #4 of doxycycline, with a coagulase-negative staphylococcus bacteremia, most likely a contamination, and we will follow closely with you and complete 4 to 7 days of doxycycline, today is day #4. Javier Rothman MD [facility] # [id number]
--- NOTE | 2017-07-30 14:13 | CP.PCM.PCO ---
Physician Communication Note - Physician Communication Note Physician Communication Note: no acute issues, will be seen tomorrow
--- NOTE | 2017-07-30 21:02 | PN ---
DATE: SUBJECTIVE: Patient is an 81-year-old, seen and examined. Sitting in chair, just had physical therapy. Has some pain in the left foot. PHYSICAL EXAMINATION: VITAL SIGNS: She is afebrile, pulse 76, respirations 18, blood pressure 114/67. LUNGS: Bilateral soft crackles posteriorly, right more than the left. HEART: S1 and S2 audible. ABDOMEN: Soft, nontender. No rebound. No guarding. NEUROLOGIC: She is awake and alert, oriented, communicative. LABORATORY DATA: Blood sugar is 290. ASSESSMENT: 1. Bilateral pneumonia, community-acquired. 2. History of gastritis. 3. Hypothyroidism. PLAN: I will start patient on Levemir since her oral intake is better. Continue nebulizer treatment, given her incentive spirometry and will reevaluate patient in a.m. Ricardo Rodgers MD
--- NOTE | 2017-07-30 21:03 | PN ---
DATE: SUBJECTIVE: The patient is in bed, in no acute distress, nontoxic. The patient was seen early this morning in room 303. PHYSICAL EXAMINATION: VITAL SIGNS: Temperature is 97, blood pressure is 114/60, respiratory rate of 18, heart rate of 80. HEENT: Unremarkable. NECK: Supple. LUNGS: Have decreased breath sounds. HEART: Normal S1, S2. ABDOMEN: Soft, nontender. REVIEWED MEDICATIONS: Reveals the patient to be on doxycycline. ASSESSMENT AND PLAN: An 81-year-old female who was seen earlier this morning in room 303 and with history of congestive heart failure, rheumatoid arthritis, diabetes, gastroenteritis, migraine, cataracts, hypothyroidism, coronary artery disease, day #5 of doxycycline and would complete 4 to 7 days of antibiotics. The patient does have coag-negative staph bacteremia most likely a contamination. We will follow with you. Javier Rothman MD
[2017-07-30] MEDS ORDERED: Insulin Detemir 100 units/ml Vial (Levemir) SC SCH (22:00)
[2017-07-31] MEDS: Albuterol-Ipratrop 3 mg / 0.5 (3 ml) UD IH SCH ×4 (01:57→22:10)
[2017-07-31] MEDS: Pantoprazole 40 mg EC Tab PO SCH (05:36)
[2017-07-31] MEDS: Levothyroxine 112 MCG TAB PO SCH (05:37)
[2017-07-31] MEDS: Levothyroxine 25 MCG TAB PO SCH (05:40)
[2017-07-31] MEDS: Insulin Reg-LOW-Coverage SC SCH ×4 (06:49→21:23)
[2017-07-31] MEDS: guaiFENesin 100 mg/5 ml Syrup UD PO PRN (09:14)
[2017-07-31] MEDS: Cefpodoxime (Vantin) 100 mg Tab PO SCH ×2 (13:59→21:16)
--- NOTE | 2017-07-31 15:00 | PN ---
DATE: SUBJECTIVE: The patient is 81-year-old, seen and examined, sitting in chair, seems to be comfortable. No nausea or vomiting. No diarrhea. Eating and tolerating. PHYSICAL EXAMINATION VITAL SIGNS: The patient is afebrile, pulse 84, respiration 18, blood pressure 116/62. LUNGS: Bilateral good airflow. Soft crackle at the right lower lung base. HEART: S1 and S2 audible. ABDOMEN: Soft, nontender. No rebound, no guarding. NEUROLOGICAL: The patient is awake, alert, oriented, communicative. EXTREMITIES: Her right leg is in the brace. LABORATORY DATA: Blood sugar in the afternoon is 189. ASSESSMENT: 1. Status post fall. 2. Status post syncope. 3. Right fibular fracture. 4. Bilateral pneumonia. 5. Insulin-dependent diabetes. 6. History of hypertension. PLAN: We will continue the patient on current medication. We will monitor blood sugar, encourage physical therapy and gait training. I will increase her insulin and continue her on current antibiotics and we will follow up this patient in a.m. Ricardo Rodgers MD
--- NOTE | 2017-07-31 18:49 | CP.PCM.PN ---
Subjective - Date & Time of Evaluation Date of Evaluation: 07/31/17 Time of Evaluation: 12:05 - Subjective Subjective: Comfortable, no fevers, not in distress. Objective - Vital Signs/Intake and Output Vital Signs (last 24 hours): Temp Pulse Resp BP Pulse Ox 97.6 F 76 18 114/67 99 07/30/17 16:58 07/30/17 16:58 07/30/17 16:58 07/30/17 16:58 07/30/17 16:58 - Medications Medications: Current Medications Acetaminophen (Tylenol 325mg Tab) 650 mg PO Q6H PRN; Protocol PRN Reason: Fever >100.4 F Last Admin: 07/29/17 11:23 Dose: 650 mg Acetaminophen (Tylenol 325mg Tab) 650 mg PO Q6H PRN; Protocol PRN Reason: Pain, Mild (1-3) Last Admin: 07/30/17 21:53 Dose: 650 mg Albuterol/Ipratropium (Duoneb 3 Mg/0.5 Mg (3 Ml) Ud) 3 ml IH [id number] FR[place]LIN PRN Reason: Protocol Last Admin: 07/30/17 20:27 Dose: 3 ml Chlordiazepoxide (Librium) 10 mg PO DAILY FR[place]LIN PRN Reason: Protocol Last Admin: 07/30/17 10:37 Dose: 10 mg Doxycycline Hyclate (Doryx) 100 mg PO Q12 [facility]LIN PRN Reason: Protocol Last Admin: 07/30/17 21:48 Dose: 100 mg Guaifenesin (Robitussin) 100 mg PO Q6H PRN; Protocol PRN Reason: Cough Insulin Detemir (Levemir) 15 unit SC HS FR[facility]LIN Last Admin: 07/30/17 21:49 Dose: 15 unit Insulin Human Regular (Humulin R Low) 0 units SC ACHS FR[facility]LIN PRN Reason: Protocol Last Admin: 07/30/17 21:48 Dose: Not Given Levothyroxine Sodium (Synthroid) 25 mcg PO 0600 FR[place]LIN PRN Reason: Protocol Last Admin: 07/30/17 05:36 Dose: 25 mcg Levothyroxine Sodium (Synthroid) 112 mcg PO 0600 [place]LIN PRN Reason: Protocol Last Admin: 07/30/17 05:36 Dose: 112 mcg Ondansetron HCl (Zofran Inj) 4 mg IVP Q6H PRN; Protocol PRN Reason: Nausea/Vomiting Last Admin: 07/29/17 12:10 Dose: 4 mg Pantoprazole Sodium (Protonix Ec Tab) 40 mg PO 0600 FR[facility]LIN PRN Reason: Protocol Last Admin: 07/30/17 05:36 Dose: 40 mg Risperidone (Risperdal Tab) 0.5 mg PO DAILY [place]LIN PRN Reason: Protocol Last Admin: 07/30/17 10:34 Dose: 0.5 mg - Constitutional Appears: Non-toxic, Chronically Ill - Head Exam Head Exam: NORMAL INSPECTION - Neck Exam Neck Exam: absent: Meningismus - Respiratory Exam Respiratory Exam: Decreased Breath Sounds - Cardiovascular Exam Cardiovascular Exam: +S1, +S2 - GI/Abdominal Exam GI & Abdominal Exam: Soft. absent: Tenderness Assessment and Plan - Assessment and Plan (Free Text) Plan: Assessment bilateral community-acquired pneumonia, clinically improving coagulase negative staph in blood cx, probably contamination left fibular fracture anxiety disorder chronic CHF HTN rheumatoid arthritis on methotrexate dyslipidemia migraine cataracts Plan continue Doxycycline day 6 to complete 7 days
[2017-07-31] MEDS: Insulin Detemir 100 units/ml Vial (Levemir) SC SCH (21:21)
--- NOTE | 2017-07-31 23:23 | CON ---
DATE: HISTORY OF PRESENT ILLNESS: The patient is a , 81-year-old, [place] born female, who was admitted to the medical floor status post syncope and fall. Patient was medically stabilized and transferred to transitional care unit for rehab and nursing services, and the psychiatrist consulted due to the patient's psychiatric history. Possible depression. I reviewed recent notes and met with patient at bedside. Patient is superficially cooperative with fair focus during the course of my interview. She is generally calm though does have periods of anxiety. Her affect is constricted. Patient reports that she has been depressed with low energy, motivation, anxiety and helplessness for the last 5 or 6 months. Her appetite has also been poor. She denies feeling hopeless and wants to get better. Her response is generally relevant to questioning and they are consistent; however, it is worth noting that she does not know the current month, does not know the current year; however, she is well aware that she is in the hospital. This is consistent with nursing notes which indicate that patient does have periods of forgetfulness. Patient reports that she wants to get better. She wants to enjoy time with her grandchildren and she wants to try a psychiatric medication to help her with her symptoms. I reviewed benefits and possible side effects of starting an antidepressant for patient, and patient is in agreement. Vital signs and laboratory work were reviewed by this provider. MEDICATIONS: Patient's relevant psychiatric medications include Librium 10 mg daily and Risperdal 0.5 mg daily. It is unclear what patient is taking the Risperdal medication for. Patient denies having any history of hallucinations. PSYCHIATRIC HISTORY: Patient denies having any psychiatric hospitalizations or suicide attempts. She cannot recall if she has had any prior psychiatric medication trials. She denies being in any current psychiatric treatment. SOCIAL HISTORY: Patient was born and raised in [place]. She is currently . She has 3 children but lives by herself. She has a son and 2 daughters; indicates that is close to her children and that she has a good relationship with them and they are very nice children. Patient denies any drug or alcohol issues in her lifetime. IMPRESSION: Rule out adjustment disorder with mixed depression and anxiety, rule out major depressive disorder, moderate, likely generalized anxiety disorder. RECOMMENDATIONS: At this time, we will start medication to help patient with her anxiety and her depression. I discussed starting paroxetine 5 mg bedtime with patient. I reviewed indication, possible side effects, therapeutic latency and dosing with patient. She is agreeable . It is unclear why patient is taking Risperdal, although I will not change this medication until that is determined. It is possible that she has a history of agitation that I do not know about. Regarding her Librium dose, I will cut the dose to 5 mg as Paxil can also help with anxiety and medication this inhibit patient and cause increased forgetfulness, especially long-acting medications such as this one in an 81-year-old female. Psychiatry will follow up with the patient in a couple of days to determine her progress and tolerance to medication. Specifically Dr. Mae will call the patient on 08/02/2017. Please call for earlier followup if there are any acute changes in patient's presentation. Rashid Mae MD
[2017-08-01] MEDS: Albuterol-Ipratrop 3 mg / 0.5 (3 ml) UD IH SCH ×4 (03:30→20:39)
[2017-08-01] MEDS: Pantoprazole 40 mg EC Tab PO SCH (05:13)
[2017-08-01] MEDS: Levothyroxine 112 MCG TAB PO SCH (05:13)
[2017-08-01] MEDS: Levothyroxine 25 MCG TAB PO SCH (05:13)
[2017-08-01] MEDS: Insulin Reg-LOW-Coverage SC SCH ×4 (06:36→21:17)
[2017-08-01] MEDS: Cefpodoxime (Vantin) 100 mg Tab PO SCH ×2 (09:34→21:13)
[2017-08-01] MEDS: Insulin Detemir 100 units/ml Vial (Levemir) SC SCH (21:17)
[2017-08-02] MEDS: Albuterol-Ipratrop 3 mg / 0.5 (3 ml) UD IH SCH ×4 (01:03→20:44)
[2017-08-02] MEDS: Levothyroxine 112 MCG TAB PO SCH (05:43)
[2017-08-02] MEDS: Pantoprazole 40 mg EC Tab PO SCH (05:43)
[2017-08-02] MEDS: Levothyroxine 25 MCG TAB PO SCH (05:43)
[2017-08-02] MEDS: Insulin Reg-LOW-Coverage SC SCH ×4 (06:46→21:21)
[2017-08-02] MEDS: guaiFENesin 100 mg/5 ml Syrup UD PO PRN (09:50)
[2017-08-02] MEDS: Cefpodoxime (Vantin) 100 mg Tab PO SCH ×2 (09:52→21:22)
[2017-08-02] MEDS ORDERED: Magnesium Citrate Oral SOL (300 ml) PO ONE (13:42)
[2017-08-02] MEDS: POLYETHYLENE GLYCOL 3350 17 GM/Dose PACKET PO SCH (17:35)
[2017-08-02] MEDS: Magnesium Citrate Oral SOL (300 ml) PO SCH (18:11)
[2017-08-02] MEDS: Insulin Detemir 100 units/ml Vial (Levemir) SC SCH (21:22)
--- NOTE | 2017-08-02 21:59 | CON ---
DATE: HISTORY OF PRESENT ILLNESS: Patient is a , 81-year-old [place] Citizen female who was admitted to medical floor after status post syncope and fall. Patient was medically stabilized and transferred to transitional care unit for rehab and nursing purposes. Psychiatry was consulted due to patient's psychiatric history. Assessment at the patient's bed side on 07/31/2017 showed the patient was depressed and anxious and we discussed initiating Paxil for patient for her symptoms. Patient is agreeable to various medications. She remains depressed and has a lot of anxiety. She has history of forgetfulness, having low energy. Her appetite is poor, but she is trying to eat. She does have hope about the future. She is not hallucinating and she denies having any perceptual disturbances respect. She is well oriented to circumstances and wants to improve. Her insight and judgement are considered to be fair. She denies having any suicidal thoughts or thoughts to harm others. She has been in fair control in the unit and cooperative with staff members. Patient has no behavioral issues noted in the recent staff notes. Staff nursing indicated that patient can be forgetful at times, which patient is quite aware of. MEDICATIONS: Relevant psychiatric medications include Librium 10 mg daily,Risperdal 0.5 mg daily. Paxil was initiated by this provider on 07/31; however, it is not clear if this would be continued. IMPRESSION: Major depressive disorder, moderate; generalized anxiety disorder; depression and anxiety. RECOMMENDATIONS: We will continue with Paxil at 10 mg at bedtime to help with depression and anxiety. Continue with Risperdal 0.5 at bedtime. I will cut the dose to 5 mg as Paxil can help with anxiety. Psychiatry will sign off from this patient. Agreed to follow up as necessary if there are any acute changes from the patient's presentation. She is not a danger to herself or others and wanted to improve. Rashid Mae MD
--- NOTE | 2017-08-02 22:17 | PN ---
DATE: SUBJECTIVE: Patient is in bed, in no acute distress, nontoxic. OBJECTIVE: VITAL SIGNS: On exam, temperature is 97, blood pressure is 110/60, respiratory rate of 28, heart rate of 93. HEENT: Unremarkable. NECK: Supple. LUNGS: Have decreased breath sounds. HEART: Normal S1 and S2. ABDOMEN: Soft, nontender. LABORATORY EXAMINATION: Reviewed. ASSESSMENT AND PLAN: This is an 81-year-old female who was seen earlier this morning in room 303 with bilateral community-acquired pneumonia; coagulase-negative Staphylococcus in the blood, probably a contamination; left fibular fracture; anxiety disorder; chronic congestive heart failure; hypertension; rheumatoid arthritis, on methotrexate; dyslipidemia; migraine; has completed 7 days of doxycycline. We will discontinue the doxycycline. No further antibiotics. We will encourage ambulation, minimize development of nosocomial infections. Patient is on cefpodoxime started by Dr. Rodgers. Today is day #3. Javier Rothman MD
[2017-08-03] MEDS: Albuterol-Ipratrop 3 mg / 0.5 (3 ml) UD IH SCH ×4 (04:15→19:51)
[2017-08-03] MEDS: Levothyroxine 112 MCG TAB PO SCH (05:28)
[2017-08-03] MEDS: Levothyroxine 25 MCG TAB PO SCH (05:28)
[2017-08-03] MEDS: Pantoprazole 40 mg EC Tab PO SCH (05:29)
[2017-08-03] MEDS: Insulin Reg-LOW-Coverage SC SCH ×4 (06:38→21:36)
[2017-08-03 06:57] VITALS: RESP 18
--- NOTE | 2017-08-03 09:45 | PN ---
DATE: 08/01/2017 SUBJECTIVE: Patient is in bed, in no acute distress, nontoxic. PHYSICAL EXAMINATION: VITAL SIGNS: Temperature is 98, blood pressure is 111/50, respiratory rate 15. HEENT: Unremarkable. NECK: Supple. LUNGS: Decreased breath sounds. HEART: Normal S1, S2. ABDOMEN: Soft. LABORATORY EXAMINATION: Reviewed. ASSESSMENT AND PLAN: This is an 81-year-old female who was seen early this morning in room 303. No fevers and no chills. Exam is noted to be within normal limits with bilateral community-acquired pneumonia, clinically improved. Coag-negative Staphylococcus in the blood, probable contamination; fracture, anxiety, chronic congestive heart failure, hypertension, rheumatoid arthritis, on methotrexate, dyslipidemia, migraine, cataract, day #7 of doxycycline. We will discontinue doxycycline after today's dose. . We will discuss with PMD. Javier Rothman MD
--- NOTE | 2017-08-03 09:48 | PN ---
DATE: 08/02/2017 SUBJECTIVE: He is comfortable in bed, in no acute distress. No nausea. No vomiting. No diarrhea. He is tolerating oral feeds. He has history of fall, syncope. He also has anemia, bilateral pneumonia. Participating in physical therapy. REVIEW OF SYSTEMS: As per HPI. Rest of 12-point review of systems reviewed negative. PHYSICAL EXAMINATION: GENERAL: Comfortable. VITAL SIGNS: Afebrile, temperature 98.5; heart rate is 80 per minute; blood pressure 116/60; respiratory rate 18 per minute. HEENT: Mucosa pale. NECK: No lymphadenopathy. CHEST: Air entry present and equal bilaterally. No added sounds. CARDIOVASCULAR: S1 and S2 normal. No murmur. No gallop. ABDOMEN: Soft, nontender. No hepatosplenomegaly. EXTREMITIES: No edema. Right leg in brace. NEUROLOGIC: Alert, oriented x3. Communicative. LABORATORY DATA: Blood sugar 189. ASSESSMENT: 1. Status post fall. 2. Syncope. 3. Right fibular fracture. 5. Insulin-dependent diabetes mellitus. 6. Hypertension. 7. Anemia. PLAN: We will continue the current medication, monitor the blood sugar, participating in physical therapy, encourage ambulation. ID senior product consultant Dr. Rothman following, reviewed the note. Currently, on Vantin. Continue Synthroid 112 mcg daily, Zofran p.r.n., Paxil 10 mg at bedtime, and Risperdal 0.5 mg daily. Payton Mckinney MD
--- NOTE | 2017-08-03 09:48 | PN ---
DATE: 08/01/2017 SUBJECTIVE: The patient is 81 years old, seen and examined. Sitting in chair. She states she feels a lot better. No nausea or vomiting. No diarrhea. PHYSICAL EXAMINATION VITAL SIGNS: She is afebrile, pulse 78, respirations 18, blood pressure 111/57. LUNGS: Bilateral good airflow. Bilateral crackles have improved significantly. HEART: S1 and S2 audible. ABDOMEN: Soft. Nontender. No rebound. No guarding. NEUROLOGIC: She is awake, alert, oriented, communicative. LABORATORY EXAM: Blood sugar is 137. ASSESSMENT: 1. Resolving community-acquired pneumonia. 2. Status post syncope secondary to hypoglycemia and left fibular fracture. 3. Hypertension. 4. Hyperlipidemia. 5. Deconditioning. PLAN: We will continue the patient's current antibiotics. She is receiving doxycycline, levothyroxine and Vantin. We will continue that. We will continue physical therapy. Added incentive spirometry. She states this is helping it a lot. We will continue that. We will follow up in the a.m. Ricardo Rodgers MD
[2017-08-03] MEDS: Cefpodoxime (Vantin) 100 mg Tab PO SCH ×2 (10:37→21:37)
--- NOTE | 2017-08-03 12:56 | PN ---
DATE: SUBJECTIVE: The patient is 81 years old, seen and examined, sitting in chair, seems to be comfortable, ambulating with a walker. Has left leg boot on. Scanty cough. No nausea or vomiting. No diarrhea. PHYSICAL EXAMINATION: VITAL SIGNS: She is afebrile, pulse 84, respirations 18, blood pressure 110/62. LUNGS: Bilateral good airflow. No rhonchi or crackle. HEART: S1 and S2 audible. ABDOMEN: Soft. Nontender. No rebound. No guarding. NEUROLOGIC: She is awake, alert, oriented, communicative. LABORATORY EXAM: Blood sugar is 140 this morning and is 152 in the afternoon. ASSESSMENT: 1. Status post fall and left fibular fracture. 2. Insulin-dependent diabetes. 3. Community acquired pneumonia. 4. Deconditioning and difficulty walking. 5. Chronic anemia. PLAN: We will continue the patient on current medication. She is on doxycycline and Vantin. We will monitor blood sugar. We will continue nebulizer treatment. We will follow up the patient. Ricardo Rodgers MD
[2017-08-03] MEDS: POLYETHYLENE GLYCOL 3350 17 GM/Dose PACKET PO SCH (17:13)
[2017-08-03] MEDS: Magnesium Citrate Oral SOL (300 ml) PO SCH (18:49)
[2017-08-03] MEDS: Insulin Detemir 100 units/ml Vial (Levemir) SC SCH (21:36)
--- NOTE | 2017-08-03 21:41 | CP.PCM.PN ---
Subjective - Date & Time of Evaluation Date of Evaluation: 08/03/17 Time of Evaluation: 12:05 - Subjective Subjective: No fevers, not in distress. Objective - Vital Signs/Intake and Output Vital Signs (last 24 hours): Temp Pulse Resp BP Pulse Ox 98.2 F 99 H 18 128/77 92 L 08/03/17 17:35 08/03/17 17:35 08/03/17 17:35 08/03/17 17:35 08/03/17 17:35 - Medications Medications: Current Medications Acetaminophen (Tylenol 325mg Tab) 650 mg PO Q6H PRN; Protocol PRN Reason: Fever >100.4 F Last Admin: 07/29/17 11:23 Dose: 650 mg Acetaminophen (Tylenol 325mg Tab) 650 mg PO Q6H PRN; Protocol PRN Reason: Pain, Mild (1-3) Last Admin: 07/30/17 21:53 Dose: 650 mg Albuterol/Ipratropium (Duoneb 3 Mg/0.5 Mg (3 Ml) Ud) 3 ml IH [id number] [facility] PRN Reason: Protocol Last Admin: 08/03/17 19:51 Dose: 3 ml Cefpodoxime Proxetil (Vantin) 100 mg PO Q12 [facility] PRN Reason: Protocol Last Admin: 08/03/17 10:37 Dose: 100 mg Chlordiazepoxide (Librium) 5 mg PO DAILY [facility] PRN Reason: Protocol Last Admin: 08/03/17 10:39 Dose: 5 mg Guaifenesin (Robitussin) 100 mg PO Q6H PRN; Protocol PRN Reason: Cough Last Admin: 08/02/17 09:50 Dose: 100 mg Insulin Detemir (Levemir) 20 unit SC HS [facility]LIN Last Admin: 08/02/17 21:22 Dose: 20 unit Insulin Human Regular (Humulin R Low) 0 units SC ACHS [facility] PRN Reason: Protocol Last Admin: 08/03/17 17:12 Dose: 1 units Levothyroxine Sodium (Synthroid) 25 mcg PO 0600 [facility] PRN Reason: Protocol Last Admin: 08/03/17 05:28 Dose: 25 mcg Levothyroxine Sodium (Synthroid) 112 mcg PO 0600 [facility] PRN Reason: Protocol Last Admin: 08/03/17 05:28 Dose: 112 mcg Ondansetron HCl (Zofran Inj) 4 mg IVP Q6H PRN; Protocol PRN Reason: Nausea/Vomiting Last Admin: 07/29/17 12:10 Dose: 4 mg Pantoprazole Sodium (Protonix Ec Tab) 40 mg PO 0600 [facility] PRN Reason: Protocol Last Admin: 08/03/17 05:29 Dose: 40 mg Paroxetine HCl (Paxil) 10 mg PO HS [facility]LIN Last Admin: 08/02/17 21:22 Dose: 10 mg Polyethylene Glycol (Miralax) 17 gm PO 1800 [facility]LIN PRN Reason: Protocol Last Admin: 08/03/17 17:13 Dose: 17 gm Risperidone (Risperdal Tab) 0.5 mg PO DAILY [facility] PRN Reason: Protocol Last Admin: 08/03/17 10:37 Dose: 0.5 mg - Constitutional Appears: Chronically Ill - Head Exam Head Exam: NORMAL INSPECTION - Respiratory Exam Respiratory Exam: Decreased Breath Sounds - Cardiovascular Exam Cardiovascular Exam: +S1, +S2 - GI/Abdominal Exam GI & Abdominal Exam: Soft. absent: Tenderness Assessment and Plan - Assessment and Plan (Free Text) Plan: Assessment bilateral community-acquired pneumonia, clinically improved and S/P treatment coagulase negative staph in blood cx, probably contamination left fibular fracture anxiety disorder chronic CHF HTN rheumatoid arthritis on methotrexate dyslipidemia migraine cataracts Plan completed 7 days of Doxycycline - currently on Vantin and we will also discontinue this will monitor clinically off antibiotics
[2017-08-04] MEDS: Albuterol-Ipratrop 3 mg / 0.5 (3 ml) UD IH SCH ×4 (02:38→22:00)
[2017-08-04] MEDS: Levothyroxine 112 MCG TAB PO SCH (05:38)
[2017-08-04] MEDS: Pantoprazole 40 mg EC Tab PO SCH (05:38)
[2017-08-04] MEDS: Levothyroxine 25 MCG TAB PO SCH (05:38)
[2017-08-04] MEDS: Insulin Reg-LOW-Coverage SC SCH ×4 (06:31→21:51)
[2017-08-04 17:11] VITALS: BP 139/87; PULSE 83; TEMP 98.3; O2SAT 97
[2017-08-04] MEDS: POLYETHYLENE GLYCOL 3350 17 GM/Dose PACKET PO SCH (17:43)
[2017-08-04] MEDS: Insulin Detemir 100 units/ml Vial (Levemir) SC SCH (21:52)
--- NOTE | 2017-08-04 23:48 | PN ---
DATE: SUBJECTIVE: Patient is 81 years old, seen and examined, doing a lot better, eating and tolerating, complained of constipation, has been stool softener with some good result, participating in therapy. PHYSICAL EXAMINATION: VITAL SIGNS: She is afebrile. Pulse 83, respirations 18, blood pressure 139/87. LUNGS: Bilateral good airflow. No rhonchi. Grade 1 soft crackles at the bases posteriorly. HEART: S1 and S2 audible. ABDOMEN: Soft, nontender. No rebound. No guarding. NEUROLOGIC: She is awake and alert, able to communicate. LABORATORY EXAMINATION: Blood sugar is 180. ASSESSMENT AND PLAN: 1. Status post fall. 2. Status post fibular fracture. 3. Resolving pneumonia. 4. Hypertension. 5. Non-insulin dependent diabetes. So plan is patient is currently on MiraLax. We will continue that. We will continue her on Paxil as recommended by Psychiatry. She is on Protonix. She is on levothyroxine 137 mcg daily. Patient has finished her course of antibiotics and discharge plan for a.m. Ricardo Rodgers MD
--- NOTE | 2017-08-05 00:59 | PN ---
DATE: 08/04/2017 SUBJECTIVE: Patient is seen in bed, in no acute distress, nontoxic. This morning, she was seen in room 303. PHYSICAL EXAMINATION VITAL SIGNS: Temperature is 97, blood pressure is 130/70, respiratory rate 16. HEENT: Unremarkable. NECK: Supple. LUNGS: Have decreased breath sounds HEART: Normal S1 and S2. ABDOMEN: Soft, nontender. LABORATORY DATA: Are noted. ASSESSMENT AND PLAN: This is an 81-year-old female, who was seen earlier this morning in room 303, with bilateral community-acquired pneumonia, status post treatment, coagulase-negative Staphylococcus in the blood, probable contamination, left fibular fracture, anxiety disorder, chronic congestive heart failure, hypertension, arthritis, on methotrexate, dyslipidemia, migraine, cataract; completed 7 days of doxycycline, currently on Vantin which is supposed to be continued, currently on no antibiotics. Patient is at risk for developing nosocomial infections. Javier Rothman MD
[2017-08-05] MEDS: Albuterol-Ipratrop 3 mg / 0.5 (3 ml) UD IH SCH ×3 (03:00→14:04)
[2017-08-05] MEDS: Pantoprazole 40 mg EC Tab PO SCH (05:31)
[2017-08-05] MEDS: Levothyroxine 25 MCG TAB PO SCH (05:32)
[2017-08-05] MEDS: Levothyroxine 112 MCG TAB PO SCH (05:32)
[2017-08-05] MEDS: Insulin Reg-LOW-Coverage SC SCH ×2 (06:38→12:06)
--- NOTE | 2017-08-06 17:05 | DS ---
HISTORY OF PRESENT ILLNESS: The patient is an 81-year-old who was admitted because of syncope. She fell and had right fibular fracture. She was admitted in TCU for rehab. She was also found to have community-acquired pneumonia, received IV antibiotics, did well. She had intermittent constipation that was taken care of. PHYSICAL EXAMINATION: GENERAL: On examination today, she is awake, alert, oriented, communicative. VITAL SIGNS: The patient is afebrile, pulse 83, respirations 18, blood pressure 139/87. LUNGS: Bilateral good airflow. No rhonchi or crackle. HEART: S1, S2 audible. ABDOMEN: Soft, nontender. No rebound. No guarding. NEUROLOGICAL: She is awake, alert, oriented and ambulatory. LABORATORY DATA: Blood sugar is 223. ASSESSMENT: 1. Status post fall. 2. Right fibular fracture. 3. Non-insulin dependent diabetes. 4. Hypertension. 5. Hyperlipidemia. 6. Left fibular fracture. 7. Anxiety disorder. 8. History of congestive heart failure. 9. Rheumatoid arthritis. PLAN: Patient is being discharged home. She will resume her usual medications as prior to admission. She will finish her course of antibiotics and will follow up in office in a week. Ricardo Rodgers MD
== END 2017-08-05 14:59 | disposition home or self-care (01) | DRG 562 ==
LOC: TRCU 19:07
PROVIDERS: ADMIT Internal Medicine; ATTEND Internal Medicine
PROC: F07Z9FZ Gait Training/Functional Ambulation Treatment using Assistive, Adaptive, Supportive or Protective Equipment (ICD-10-PCS; principal; 2017-07-29)
PROC: F07M6ZZ Therapeutic Exercise Treatment of Musculoskeletal System - Whole Body (ICD-10-PCS; 2017-07-29)
PROC: F08Z4ZZ Home Management Treatment (ICD-10-PCS; 2017-07-29)
DX: S82.402A Unspecified fracture of shaft of left fibula, initial encounter for closed fracture (principal); J18.9 Pneumonia, unspecified organism; F32.1 Major depressive disorder, single episode, moderate; E86.0 Dehydration; I11.0 Hypertensive heart disease with heart failure; I50.9 Heart failure, unspecified; E78.5 Hyperlipidemia, unspecified; M06.9 Rheumatoid arthritis, unspecified; E11.36 Type 2 diabetes mellitus with diabetic cataract; E11.649 Type 2 diabetes mellitus with hypoglycemia without coma; E03.9 Hypothyroidism, unspecified; F41.1 Generalized anxiety disorder; G43.909 Migraine, unspecified, not intractable, without status migrainosus; D64.9 Anemia, unspecified; I25.10 Atherosclerotic heart disease of native coronary artery without angina pectoris; Z79.4 Long term (current) use of insulin; Z79.899 Other long term (current) drug therapy; Z90.710 Acquired absence of both cervix and uterus; Z91.013 Allergy to seafood

== ENCOUNTER 2017-08-30 22:37 | Observation (INO) | payer MEDICARE, OTHER ==
[2017-08-30 22:37] VITALS: BMI 22.8
--- NOTE | 2017-08-30 23:07 | ED PDOC ---
Arrival/HPI - General Chief Complaint: Altered Mental Status Time Seen by Provider: 08/30/17 22:42 Historian: Patient - History of Present Illness Narrative History of Present Illness (Text): 08/30/17 23:06 Kaitlin Oshea is an 81 year old female, whose past medical history includes diabetes, CAD, gastroenteritis, anxiety, rheumatoid arthritis, hypertension, hyperlipidemia, and hypothyroidism, who presents to the Emergency department brought in by EMS accompanied by family complaining of hypoglycemia tonight. Daughter states patient's blood glucose level was low at home and EMS was notified. Patient was given D50 and blood sugar on arrival to Emergency department was 241. Daughter notes patient has not been eating very well and reports takes Metformin, Glimepiride, and Insulin. Patient did not take insulin today. Patient states she feels fine currently. Patient denies any fever, chills , chest pain, shortness of breath, nausea, vomiting, diarrhea, urinary symptoms , back pain, neck pain, headache, dizziness, or any other complaints. PMD: Dr. Rodgers Symptom Onset: Gradual Symptom Course: Unchanged Activities at Onset: Light Context: Home Past Medical History - Provider Review Nursing Documentation Reviewed: Yes () - Tetanus Immunization Tetanus Immunization: Unknown - Cardiac Hx Congestive Heart Failure: Yes - Pulmonary Hx Chronic Obstructive Pulmonary Disease (COPD): Yes - Neurological HX Cerebrovascular Accident: Yes - HEENT Hx HEENT Disorder: Yes Hx Cataracts: Yes (sx right eye) - Renal Hx Renal Disorder: No - Endocrine/Metabolic Hx Diabetes Mellitus Type 2: Yes - Hematological/Oncological Hx Blood Disorders: No Hx Shingles: Yes (right back healed) - Integumentary Hx Dermatological Disorder: Yes Other/Comment: multiple skin discolorationsble, lle +1 edema soft cast +fx left ankle - Musculoskeletal/Rheumatological Hx Falls: Yes - Gastrointestinal Hx Gastrointestinal Disorders: Yes Hx Gastroesophageal Reflux: Yes - Genitourinary/Gynecological Hx Genitourinary Disorders: No - Psychiatric Hx Anxiety: Yes Hx Depression: No Hx Substance Use: No - Surgical History Hx Hysterectomy: Yes Other/Comment: varicose vein sx - Anesthesia Hx Anesthesia: Yes Hx Anesthesia Reactions: No Hx Malignant Hyperthermia: No - Suicidal Assessment Feels Threatened In Home Enviroment: No Family/Social History - Physician Review Nursing Documentation Reviewed: Yes Family/Social History: Unknown Family HX Smoking Status: Never Smoked Hx Alcohol Use: No Hx Substance Use: No Allergies/Home Meds Allergies/Adverse Reactions: Allergies shellfish derived Allergy (Intermediate, Verified 08/30/17 22:59) URTICARIA swelling & redness shrimp Allergy (Intermediate, Verified 08/30/17 22:59) URTICARIA swelling, redness Home Medications: Home Meds Medication Instructions Recorded Confirmed Atenolol [Tenormin] 25 mg PO DAILY 11/02/16 08/30/17 Glipizide [Glipizide Xl] 25 mg PO BID 11/02/16 08/30/17 Levothyroxine Sodium 137 mcg PO DAILY 11/02/16 08/30/17 Pantoprazole [Protonix EC Tab] 40 mg PO DAILY 11/02/16 08/30/17 Pravastatin Sodium [Pravachol] 40 mg PO DAILY 11/02/16 08/30/17 Prednisone [Arpit] 5 mg PO DAILY 11/02/16 08/30/17 metFORMIN [glucOPHAGE] 500 mg PO BID 11/02/16 08/30/17 Albuterol HFA [Ventolin HFA 90 0 mg IH DAILY 07/23/17 07/23/17 mcg/actuation (8 g)] Fluticasone/Vilanterol [Breo 1 each IH DAILY 07/23/17 08/30/17 Ellipta 100-25 Mcg INH] Omeprazole Magnesium [Prilosec Otc] 40 mg PO DAILY 07/23/17 07/23/17 Insulin Glargine,Hum.rec.anlog 12 unit SC HS 07/24/17 08/30/17 [Lantus Solostar] Losartan [Cozaar] 100 mg PO DAILY 07/24/17 07/24/17 Methotrexate 20 mg PO Q7D 07/24/17 08/30/17 chlordiazePOXIDE [Librium] 10 mg PO DAILY 07/24/17 07/24/17 Memantine [Namenda] 10 mg PO DAILY 08/30/17 08/30/17 Metoclopramide [Reglan] 5 mg PO DAILY 08/30/17 08/30/17 Risperidone [Risperdal] 0.25 mg PO DAILY 08/30/17 08/30/17 Review of Systems - Physician Review All systems were reviewed & negative as marked: Yes - Review of Systems Constitutional: Normal. absent: Fevers Eyes: Normal ENT: Normal Respiratory: Normal. absent: SOB, Cough Cardiovascular: Normal. absent: Chest Pain Gastrointestinal: Normal. absent: Abdominal Pain, Diarrhea, Nausea, Vomiting Genitourinary Female: Normal. absent: Dysuria, Frequency, Hematuria, Urine Output Changes Musculoskeletal: Normal. absent: Back Pain, Neck Pain Skin: Normal. absent: Rash Neurological: Normal. absent: Headache, Dizziness Endocrine: Other (+hypoglycemia) Hemo/Lymphatic: Normal Psychiatric: Normal Physical Exam Vital Signs Reviewed: Yes Vital Signs Temp Pulse Resp BP Pulse Ox 08/30/17 22:53 97.5 F L 64 18 176/63 H 96 Temperature: Afebrile Blood Pressure: Hypertensive Pulse: Regular Respiratory Rate: Normal Appearance: Positive for: Well-Appearing, Non-Toxic, Comfortable Pain Distress: None Mental Status: Positive for: Alert and Oriented X 3 Finger Stick Blood Glucose: 241 - Systems Exam Head: Present: Atraumatic, Normocephalic Pupils: Present: PERRL Extroacular Muscles: Present: EOMI Conjunctiva: Present: Normal Mouth: Present: Moist Mucous Membranes Neck: Present: Normal Range of Motion Respiratory/Chest: Present: Clear to Auscultation, Good Air Exchange. No: Respiratory Distress, Accessory Muscle Use Cardiovascular: Present: Regular Rate and Rhythm, Normal S1, S2. No: Murmurs Abdomen: No: Tenderness, Distention, Peritoneal Signs Back: Present: Normal Inspection Upper Extremity: Present: Normal Inspection. No: Cyanosis, Edema Lower Extremity: Present: Normal Inspection. No: Edema Neurological: Present: GCS=15, CN II-XII Intact, Speech Normal Skin: Present: Warm, Dry, Normal Color. No: Rashes Psychiatric: Present: Alert, Oriented x 3, Normal Insight, Normal Concentration Medical Decision Making ED Course and Treatment: 08/30/17 23:06 Impression: 81 year old female complaining of hypoglycemia tonight. Plan: -- EKG -- Chest X-ray -- Labs, troponin -- D5 fluids -- Reassess and disposition Prior Visits: Notes and results from previous visits were reviewed. Progress Notes: Reviewed EKG, NSR at 63 bpm. LVH. Non-specific T wave changes. 08/30/17 23:[address] Rodgers, who is aware and agrees with plan. Accepts pt in to her service. Pt will go to remote telemetry observation for hypoglycemia. 08/30/17 23:53 Chest X-ray reviewed, shows no acute processes. - Lab Interpretations Lab Results: 09/01/17 06:00 09/01/17 06:00 Lab Results 09/01/17 16:10: POC Glucose (mg/dL) 106 09/01/17 11:13: POC Glucose (mg/dL) 197 H 09/01/17 06:31: POC Glucose (mg/dL) 130 H 09/01/17 06:00: Free T4 2.15, TSH 3rd Generation < 0.02 L 09/01/17 06:00: Sodium 140, Potassium 4.3, Chloride 102, Carbon Dioxide 30, Anion Gap 12, BUN 14, Creatinine 0.9, Est GFR ( Amer) > 60, Est GFR (Non- Af Amer) > 60, Random Glucose 132 H, Calcium 9.0, Magnesium 2.0, Total Bilirubin 0.3, AST 29, ALT 39, Alkaline Phosphatase 26 L, Total Protein 5.9, Albumin 3.2, Globulin 2.6, Albumin/Globulin Ratio 1.2 09/01/17 06:00: WBC 4.5, RBC 3.01 L, Hgb 9.2 L, Hct 27.6 L, MCV 91.7, MCH 30.6, MCHC 33.3, RDW 17.2 H, Plt Count 103 L, MPV 11.5 H, Gran % 52.5, Lymph % (Auto) 30.4, [place] % (Auto) 11.1 H, Eos % (Auto) 6.0 H, Baso % (Auto) 0.0, Gran # 2.37, Lymph # (Auto) 1.4, [place] # (Auto) 0.5, Eos # (Auto) 0.3, Baso # (Auto) 0.00 08/31/17 20:47: POC Glucose (mg/dL) 170 H 08/31/17 16:08: POC Glucose (mg/dL) 258 H 08/31/17 13:30: Urine Color Yellow, Urine Appearance Clear, Urine pH 6.5, Ur Specific [place] <= 1.005, Urine Protein Negative, Urine Glucose (UA) Negative, Urine Ketones Negative, Urine Blood Negative, Urine Nitrate Negative, Urine Bilirubin Negative, Urine Urobilinogen 0.2, Ur Leukocyte Esterase Trace H, Urine RBC Negative, Urine WBC 0 - 2 08/31/17 11:13: POC Glucose (mg/dL) 149 H 08/31/17 08:25: Free T4 2.13, TSH 3rd Generation < 0.02 L 08/31/17 08:25: Hemoglobin A1c 6.1 08/31/17 08:25: Sodium 141, Potassium 4.7, Chloride 100, Carbon Dioxide 31, Anion Gap 14, BUN 16, Creatinine 0.9, Est GFR ( Amer) > 60, Est GFR (Non- Af Amer) > 60, Random Glucose 88, Calcium 9.5, Phosphorus 3.8, Magnesium 1.4 L, Total Bilirubin 0.4, AST 32, ALT 35, Alkaline Phosphatase 25 L, Total Protein 6.4, Albumin 3.7, Globulin 2.6, Albumin/Globulin Ratio 1.4, Free T3 pg/mL 4.48 08/31/17 08:25: WBC 4.3 L D, RBC 3.17 L, Hgb 9.7 L, Hct 29.1 L, MCV 91.8, MCH 30.6, MCHC 33.3, RDW 16.8 H, Plt Count 87 L, MPV 9.5, Gran % 50.1, Lymph % (Auto ) 37.0 H, [place] % (Auto) 9.0 H, Eos % (Auto) 3.7, Baso % (Auto) 0.2, Gran # 2.16 , Lymph # (Auto) 1.6, [place] # (Auto) 0.4, Eos # (Auto) 0.2, Baso # (Auto) 0.01 08/31/17 08:09: POC Glucose (mg/dL) 93 08/31/17 07:08: POC Glucose (mg/dL) 50 L 08/31/17 02:46: POC Glucose (mg/dL) 68 08/30/17 23:29: Sodium 137, Potassium 4.2, Chloride 97 L, Carbon Dioxide 30, Anion Gap 15, BUN 18, Creatinine 0.8, Est GFR ( Amer) > 60, Est GFR (Non- Af Amer) > 60, Random Glucose 175 H, Calcium 9.7, Total Bilirubin 0.3, AST 38 H , ALT 34, Alkaline Phosphatase 29 L D, Troponin I < 0.01 D, Total Protein 6.9, Albumin 4.0, Globulin 2.8, Albumin/Globulin Ratio 1.4 08/30/17 23:29: WBC 3.5 L D, RBC 3.31 L, Hgb 10.2 L, Hct 30.2 L, MCV 91.2, MCH 30.8, MCHC 33.8, RDW 16.9 H, Plt Count 96 L, MPV 10.6, Gran % 63.5, Lymph % ( Auto) 22.9, [place] % (Auto) 11.9 H, Eos % (Auto) 1.7, Baso % (Auto) 0.0, Gran # 2.24, Lymph # (Auto) 0.8 L, [place] # (Auto) 0.4, Eos # (Auto) 0.1, Baso # (Auto) 0.00 I have reviewed the lab results: Yes - RAD Interpretation Radiology Orders: 08/30/17 23:17 CHEST PORTABLE [RAD] Stat 09/02/17 09:55 BRAIN WITHOUT CONTRAST [MRI] Routine Tire Buffer: ED Physician - EKG Interpretation Interpreted by ED Physician: Yes Type: 12 lead EKG - Medication Orders Current Medication Orders: Acetaminophen (Tylenol 325mg Tab) 650 mg PO Q4H PRN PRN Reason: Fever >100.5 F Last Admin: 09/01/17 02:34 Dose: 650 mg [facility] Pain/Vitals Document 09/01/17 02:34 OLIVAlfredo (Rec: 09/01/17 02:35 OLIVAlfredo [id number]) Pain Reassessment Is This A Pain ReAssessment? No Presence of Pain Presence of Pain Yes Pain Scale Used Pain Scale Used Numeric Location Pain Location Body Relief Worker Description Intermittent Intensity 5 Scale Used Numeric Re-Assess: [facility] Pain/Vitals Document 09/01/17 03:34 OLIVAlfredo (Rec: 09/01/17 05:55 [email or web address] [id number]) Pain Reassessment Is This A Pain ReAssessment? Yes Sleep Is patient sleeping during reassessment? Yes Albuterol/Ipratropium (Duoneb 3 Mg/0.5 Mg (3 Ml) Ud) 3 ml IH [id number] PRN PRN Reason: Shortness of Breath Alprazolam (Xanax) 0.25 mg PO TID [facility] PRN Reason: Protocol Stop: 09/09/17 18:01 Last Admin: 09/02/17 17:25 Dose: 0.25 mg Behavioural Document 09/02/17 17:25 ML (Rec: 09/02/17 17:25 ML [id number]) Maintenance Maintenance Dose Yes Re-Assess: Reassess Psych Meds Document 09/02/17 18:25 ML (Rec: 09/02/17 18:50 ML [email or web address]) Reassess Psych Med Effective Aspirin (Aspirin Chewable) 81 mg PO DAILY [facility] Last Admin: 09/02/17 14:58 Dose: 81 mg Atenolol (Tenormin) 25 mg PO DAILY [facility] Last Admin: 09/02/17 09:35 Dose: 25 mg Atorvastatin Calcium (Lipitor) 10 mg PO DAILY [facility] Last Admin: 09/02/17 09:35 Dose: 10 mg Cyproheptadine HCl (Periactin) 4 mg PO TID [facility] Last Admin: 09/02/17 17:25 Dose: 4 mg Donepezil HCl (Aricept) 10 mg PO [facility] Insulin Human Regular (Humulin R Low) 0 units SC ACHS [facility] PRN Reason: Protocol Last Admin: 09/02/17 17:24 Dose: 1 units Subcutaneous Administrations Document 09/02/17 17:24 ML (Rec: 09/02/17 17:24 ML [id number]) Injection Site MAR Injection Site Right Abdomen Charges for Administration # of Subcutaneous Administrations 1 Magnesium Oxide (Mag-Ox) 400 mg PO DAILY [facility] Last Admin: 09/02/17 09:35 Dose: 400 mg Memantine (Namenda) 10 mg PO DAILY [facility] Last Admin: 09/02/17 09:35 Dose: 10 mg Metformin HCl (Glucophage) 500 mg PO BID [facility] Last Admin: 09/02/17 17:24 Dose: 500 mg Pantoprazole Sodium (Protonix Ec Tab) 40 mg PO DAILY [facility] Last Admin: 09/02/17 09:35 Dose: 40 mg Risperidone (Risperdal Tab) 0.5 mg PO ON LICENSE OF [facility] PRN Reason: Protocol Thiamine HCl (Vitamin B1 Tab) 100 mg PO Q8 [facility] Last Admin: 09/02/17 14:58 Dose: 100 mg Discontinued Medications Chlordiazepoxide (Librium) 5 mg PO BID [facility] PRN Reason: Protocol Last Admin: 09/02/17 11:06 Dose: 5 mg Behavioural Document 09/02/17 11:06 ML (Rec: 09/02/17 11:07 ML [id number]) Maintenance Maintenance Dose Yes Re-Assess: Reassess Psych Meds Document 09/02/17 12:06 ML (Rec: 09/02/17 12:34 ML [email or web address]) Reassess Psych Med Effective Dextrose/Sodium Chloride (Dextrose 5%/0.45% Ns 1000 Ml) 1,000 mls @ 50 mls/hr IV .Q20H [facility] Last Admin: 08/31/17 00:04 Dose: 50 mls/hr eMAR Start Stop Document 08/31/17 00:04 IT (Rec: 08/31/17 00:04 IT [facility] [id number] Intravenous Solution Start Date 08/31/17 Start Time 00:04 Magnesium Sulfate 2 gm/ Sodium (Chloride) 104 mls @ 102 mls/hr IVPB ONCE ONE Stop: 08/31/17 12:53 Last Admin: 08/31/17 13:19 Dose: 102 mls/hr eMAR Start Stop Document 08/31/17 13:19 SOUSV (Rec: 08/31/17 13:19 SOUSV [id number]) Intravenous Solution Start Date 08/31/17 Start Time 13:19 End Date 08/31/17 End time 14:21 Total Infusion Time 62 Lorazepam (Ativan) 1 mg IVP STAT STA PRN Reason: Protocol Stop: 09/02/17 09:22 Last Admin: 09/02/17 09:34 Dose: 1 mg IVP Administration Document 09/02/17 09:34 ML (Rec: 09/02/17 09:35 ML [id number]) Charges for Administration # of IVP Administrations 1 Behavioural Document 09/02/17 09:34 ML (Rec: 09/02/17 09:35 ML [id number]) Maintenance Maintenance Dose Yes Re-Assess: Reassess Psych Meds Document 09/02/17 10:04 ML (Rec: 09/02/17 10:49 ML [email or web address]) Reassess Psych Med Effective Risperidone (Risperdal Tab) 0.5 mg PO DIN [facility] PRN Reason: Protocol Last Admin: 09/01/17 17:30 Dose: 0.5 mg Behavioural Document 09/01/17 17:30 SOUSV (Rec: 09/01/17 17:30 SOUSV [id number]) Maintenance Maintenance Dose Yes Re-Assess: Reassess Psych Meds Document 09/01/17 18:30 SOUSV (Rec: 09/01/17 18:43 SOUSV [email or web address]) Reassess Psych Med Effective - Scribe Statement The provider has reviewed the documentation as recorded by the Scribe Merari Reid Provider Scribe Attestation: All medical record entries made by the Scribe were at my direction and personally dictated by me. I have reviewed the chart and agree that the record accurately reflects my personal performance of the history, physical exam, medical decision making, and the department course for this patient. I have also personally directed, reviewed, and agree with the discharge instructions and disposition. Disposition/Present on Arrival - Present on Arrival Any Indicators Present on Arrival: No History of DVT/PE: No History of Uncontrolled Diabetes: No Urinary Catheter: No History of Decub. Ulcer: No History Surgical Site Infection Following: None - Disposition Have Diagnosis and Disposition been Completed?: Yes Diagnosis: Hypoglycemia Disposition: HOSPITALIZED Disposition Time: 23:51 Condition: FAIR
[2017-08-30] MEDS ORDERED: Dextrose 5%/0.45% NS 1,000 ML IV SCH (23:30)
[2017-08-30 23:56] LABS: EOS # 0.1 (0.0-0.7); EOS % 1.7 % (1.5-5.0); GRAN # 2.24 (1.4-6.5); GRAN % 63.5 % (50.0-68.0); HEMOGLOBIN 10.2 g/dL (12.0-16.0); LYMPH # 0.8 (1.2-3.4); LYMPH % 22.9 % (22.0-35.0); MEAN CELL VOLUME 91.2 fl (80.0-105.0); MEAN CORPUSCULAR HEMOGLOBIN 30.8 pg (25.0-35.0); MEAN CORPUSCULAR HGB CONC 33.8 g/dl (31.0-37.0); MEAN PLATELET VOLUME 10.6 fl (7.0-11.0); MONO # 0.4 (0.1-0.6); MONO % 11.9 % (1.0-6.0); RBC 3.31 10^6/uL (3.5-6.1); RED CELL DISTRIBUTION WIDTH 16.9 % (11.5-14.5); WHITE BLOOD COUNT 3.5 10^3/ul (4.5-11.0)
[2017-08-31 00:01] LABS: ALB/GLOB RATIO 1.4 (1.1-1.8); ALT/SGPT 34 U/L (7-56); AST/SGOT 38 U/L (14-36); BLOOD UREA NITROGEN 18 mg/dL (7-21); CALCIUM 9.7 mg/dL (8.4-10.5); GFR AFRICAN-AMERICAN > 60; GFR NON-AFRICAN AMERICAN > 60
[2017-08-31 00:12] LABS: TROPONIN I < 0.01 ng/mL
[2017-08-31] MEDS: Insulin Reg-LOW-Coverage SC SCH ×4 (07:30→21:34)
[2017-08-31] MEDS ORDERED: Albuterol-Ipratrop 3 mg / 0.5 (3 ml) UD IH PRN (08:19)
[2017-08-31 08:33] LABS: BASO # 0.01 K/mm3 (0.0-2.0); BASO % 0.2 % (0.0-3.0); EOS # 0.2 (0.0-0.7); EOS % 3.7 % (1.5-5.0); GRAN # 2.16 (1.4-6.5); GRAN % 50.1 % (50.0-68.0); HEMOGLOBIN 9.7 g/dL (12.0-16.0); LYMPH # 1.6 (1.2-3.4); MEAN CELL VOLUME 91.8 fl (80.0-105.0); MEAN CORPUSCULAR HEMOGLOBIN 30.6 pg (25.0-35.0); MEAN CORPUSCULAR HGB CONC 33.3 g/dl (31.0-37.0); MEAN PLATELET VOLUME 9.5 fl (7.0-11.0); MONO # 0.4 (0.1-0.6); RBC 3.17 10^6/uL (3.5-6.1); RED CELL DISTRIBUTION WIDTH 16.8 % (11.5-14.5); WHITE BLOOD COUNT 4.3 10^3/ul (4.5-11.0)
[2017-08-31 08:46] LABS: ALB/GLOB RATIO 1.4 (1.1-1.8); ALBUMIN 3.7 g/dL (3.0-4.8); ALT/SGPT 35 U/L (7-56); AST/SGOT 32 U/L (14-36); BLOOD UREA NITROGEN 16 mg/dL (7-21); CALCIUM 9.5 mg/dL (8.4-10.5); GFR AFRICAN-AMERICAN > 60; GFR NON-AFRICAN AMERICAN > 60
--- NOTE | 2017-08-31 08:57 | RAD ---
HISTORY: hypoglycemia COMPARISON: 07/23/2017 FINDINGS: LUNGS: No active pulmonary disease. PLEURA: No significant pleural effusion identified, no pneumothorax apparent. CARDIOVASCULAR: Normal. OSSEOUS STRUCTURES: No significant abnormalities. VISUALIZED UPPER ABDOMEN: Normal. OTHER FINDINGS: None. IMPRESSION: No active disease.
[2017-08-31 09:01] LABS: FREE T4 2.13 ng/dL (0.78-2.19)
[2017-08-31] MEDS: Pantoprazole 40 mg EC Tab PO SCH (09:15)
[2017-08-31] MEDS ORDERED: Magnesium Sulfate 2 GM in Sodium Chloride 0.9% 100 ML IVPB ONE (11:52)
[2017-08-31] MEDS: Magnesium Oxide 400 mg Tab UD PO SCH (13:21)
[2017-08-31 13:50] LABS: PH,URINE 6.5 (4.7-8.0); URINE BILIRUBIN NEGATIVE (NEGATIVE); URINE BLOOD NEGATIVE (NEGATIVE); URINE GLUCOSE (UA) NEGATIVE (NEGATIVE); URINE LEUKOCYTE ESTERASE TRACE Leu/uL (NEGATIVE); URINE PROTEIN NEGATIVE mg/dL (<30 mg/dL); URINE UROBILINOGEN 0.2 E.U./dL (<1 E.U./dL)
[2017-08-31 13:52] LABS: URINE APPEARANCE CLEAR (CLEAR); URINE COLOR YELLOW (YELLOW)
[2017-08-31 13:55] LABS: URINE RBC NEGATIVE /hpf (0-2); URINE WBC 0 - 2 /hpf (0-6)
--- NOTE | 2017-08-31 15:28 | HP ---
HISTORY OF PRESENT ILLNESS: The patient is 81 years old, who was recently admitted on 07/28/2017. At that point, the patient fell at home, had left fibular fracture. The patient states when she got up, she felt very weak, dizzy and she fell. Daughter heard the thumb and called the ambulance and she was brought to emergency room. She was found to have blood sugar of 35. The patient does admit that last night, she took her insulin, but did not feel like eating. As the patient reached the ER, D50 was given by EMS and blood sugar was 241. According to the family, the patient has not been eating that well. Has been taking metformin, glimepiride and insulin. No history of fever. No chills. No nausea or vomiting. No diarrhea. No headache. PAST MEDICAL HISTORY: Significant for, 1. Hypertension. 2. Hypothyroidism. 3. Insulin-dependent diabetes. 4. Hyperlipidemia. 5. History of anxiety disorder. 6. Mild dementia. SOCIAL HISTORY: Lately, she has been living with her daughter, although she was living by herself for almost a month or so ago. She has 2 daughters, who are very caring and the son. ALLERGY: THE PATIENT IS ALLERGIC TO SHELLFISH DERIVATIVE AND SHRIMPS. MEDICATION AT HOME: The patient is on levothyroxine 137 mcg daily, methotrexate 20 mg every 7 days, glipizide 25 twice a day, prednisone 5 mg daily, pravastatin 40 mg daily, pantoprazole 40 mg daily, Librium 10 mg daily, atenolol 25 daily, metformin 500 twice a day, Risperdal 0.5 at bedtime and 0.25 in the morning, levothyroxine 25 mcg daily and nebulizer treatment. REVIEW OF SYSTEMS: Has generalized weakness, but feels okay now. PHYSICAL EXAMINATION: GENERAL: She is awake, alert, oriented, communicative, VITAL SIGNS: She is afebrile, pulse 56, respirations 19, blood pressure 112/60. LUNGS: Bilateral good airflow. No rhonchi or crackle. HEART: S1 and S2 audible. ABDOMEN: Soft. Nontender. No rebound. No guarding. NEUROLOGIC: The patient is awake, alert, oriented, communicative. LABORATORY EXAM: WBC is 4.3, hemoglobin 9.7, hematocrit 29, platelet 287. Chemistry: Sodium 141, potassium 4.7, chloride 100, CO2 of 31, BUN 16, creatinine 0.9, blood sugar of 88, magnesium 1.4, TSH is 0.02. ASSESSMENT: 1. Status post episode of hypoglycemia. 2. Hypertension. 3. Hypothyroidism. 4. Hypomagnesemia. 5. Anxiety disorder. PLAN: I will continue her on IV fluids and get physical therapy evaluation. She might benefit from TCU. The patient recently had left fibular fracture and will follow up with Orthopedic also. We will reevaluate the patient in the a.m. Ricardo Rodgers MD
--- NOTE | 2017-08-31 17:56 | CARD ---
APPROVED REPORT EKG Measurement Heart [id number] <Conclusion> Normal sinus rhythm Voltage criteria for left ventricular hypertrophy Nonspecific T wave abnormality Abnormal ECG
[2017-09-01 06:52] LABS: EOS # 0.3 (0.0-0.7); GRAN # 2.37 (1.4-6.5); GRAN % 52.5 % (50.0-68.0); HEMOGLOBIN 9.2 g/dL (12.0-16.0); LYMPH # 1.4 (1.2-3.4); LYMPH % 30.4 % (22.0-35.0); MEAN CELL VOLUME 91.7 fl (80.0-105.0); MEAN CORPUSCULAR HEMOGLOBIN 30.6 pg (25.0-35.0); MEAN CORPUSCULAR HGB CONC 33.3 g/dl (31.0-37.0); MEAN PLATELET VOLUME 11.5 fl (7.0-11.0); MONO # 0.5 (0.1-0.6); MONO % 11.1 % (1.0-6.0); RBC 3.01 10^6/uL (3.5-6.1); RED CELL DISTRIBUTION WIDTH 17.2 % (11.5-14.5); WHITE BLOOD COUNT 4.5 10^3/ul (4.5-11.0)
[2017-09-01 07:14] LABS: FREE T4 2.15 ng/dL (0.78-2.19)
[2017-09-01 07:15] LABS: ALB/GLOB RATIO 1.2 (1.1-1.8); ALBUMIN 3.2 g/dL (3.0-4.8); ALT/SGPT 39 U/L (7-56); AST/SGOT 29 U/L (14-36); BLOOD UREA NITROGEN 14 mg/dL (7-21); GFR AFRICAN-AMERICAN > 60; GFR NON-AFRICAN AMERICAN > 60
[2017-09-01] MEDS: Insulin Reg-LOW-Coverage SC SCH ×4 (08:32→21:35)
[2017-09-01] MEDS: Pantoprazole 40 mg EC Tab PO SCH (09:11)
[2017-09-01] MEDS: Magnesium Oxide 400 mg Tab UD PO SCH (09:11)
--- NOTE | 2017-09-01 19:10 | CON ---
DATE: 09/01/2017 NEUROLOGY CONSULTATION CHIEF COMPLAINT: Altered mental status. HISTORY OF PRESENT ILLNESS: This is an 81-year-old woman with history of hypertension, hypothyroidism, insulin-dependent diabetes mellitus, mild dementia, hyperlipidemia, anxiety disorder, who was brought to the hospital because she fell at home and had the left fibular fracture, was initially admitted on 07/28/2017, for that. Then, the daughter had heard a thump on the floor and went and saw the mother on the floor and she was found to have by EMS her blood sugar of 35, where then she admitted that she took her insulin last night, but did not feel like , she took it on empty stomach. By the EMS, she was given D50, which her blood sugar . Currently, she has some delirium, superimposed on the cognitive impairment. Her cognitive impairment seems more moderate to severe at this point. Feels like she has some form of dementia and no Alzheimer's type at this point. We will consider a brain MRI given her risk factors. She is moving her all extremities, no pronator drift seen. On sensory examination, she does have evidence of some peripheral neuropathy. PAST MEDICAL HISTORY: History of hypertension, hypothyroidism, insulin-dependent diabetes mellitus, hyperlipidemia, history of anxiety disorder, mild dementia. SOCIAL HISTORY: Lately, she has been living with her daughter, although she was living by herself for almost a month or so. She has two daughters who are very caring. ALLERGIES: ALLERGIC TO SHELLFISH DERIVATIVE AND SHRIMPS. MEDICATION: Reviewed by nurse per reconciliation sheet. REVIEW OF SYSTEMS: A 14-point review of systems is negative except in the HPI. PHYSICAL EXAMINATION: VITAL SIGNS: Temperature 96.4, pulse rate 62, blood pressure 120/57, respiratory rate of 16, oxygen saturation 97% via room air. GENERAL: The patient is sitting up in bed, in no acute distress. HEENT: Head is atraumatic and normocephalic. PERRLA. Extraocular muscles intact. NECK: Supple. No JVD. No adenopathy noted. LUNGS: Clear to auscultation. No adventitious sounds. HEART: S1 and S2. Normal rate and rhythm. No murmur, rubs, or gallops. ABDOMEN: Soft, nontender, and nondistended. Bowel sounds present. EXTREMITIES: No clubbing. No cyanosis. Peripheral pulses 2+ felt bilaterally. NEUROLOGIC: The patient is alert, oriented to person and place, not much to month or year. She does not know the president of [employer], but states that "this is a maria fernanda that she does not like." Recall after 5 minutes is 0/3. Judgement is intact. Cranial nerves II through XII are intact. Motor exam: Moves all extremities equally. No pronator drift seen. Sensory exam: Decreased to light touch and pinprick up to the calves bilaterally. Decreased vibration at the toes. DTRs are 2+ throughout, 1 at both knees and ankles. Coordination, [id number]-[id number] intact. No dysmetria noted. LABORATORY DATA: Sodium 140, potassium 4.3, chloride 102, carbon dioxide 30. BUN of 14, creatinine 0.9. Random glucose of 132. ASSESSMENT AND PLAN: This is an 81-year-old woman with history of hypertension, hypothyroidism, insulin-dependent diabetes mellitus, hyperlipidemia, history of anxiety and dementia, most likely more of moderate to severe cognitive impairment, brought in for transient altered mental status secondary to transient hypoglycemia. Currently, she does have evidence of an acute metabolic encephalopathy, superimposed underlying moderate to severe cognitive impairment. At this time given her risk factors, we will consider; 1. An MRI of the brain to assess for any acute intracranial abnormalities. 2. Physical and occupational therapy for underlying deconditioned state given that she had a recent fibular fracture. 3. Monitor electrolytes and correct accordingly. 4. Risperidone p.r.n. for agitation and thiamine 100 mg p.o. every 8 hours for neurohormonal activation. Once again, thank you for this consult. Angus Barton MD
[2017-09-02] MEDS: Insulin Reg-LOW-Coverage SC SCH ×4 (07:42→21:40)
[2017-09-02] MEDS: Pantoprazole 40 mg EC Tab PO SCH (09:35)
[2017-09-02] MEDS: Magnesium Oxide 400 mg Tab UD PO SCH (09:35)
--- NOTE | 2017-09-02 11:21 | MRI ---
PROCEDURE: MRI BRAIN WITHOUT CONTRAST HISTORY: ams COMPARISON: MRI 10/10/2016 TECHNIQUE: Multiplanar, multisequence MR images of the brain were obtained without intravenous contrast enhancement. FINDINGS: HEMORRHAGE: None DWI: No evidence of an acute or early subacute infarction. BRAIN PARENCHYMA: No mass effect or edema. Severe chronic microvascular changes are seen in the periventricular and subcortical white matter. VENTRICLES: Unremarkable. No hydrocephalus. CRANIUM: Unremarkable. ORBITS: Grossly unremarkable. PARANASAL SINUSES/MASTOIDS: Clear VASCULAR SYSTEM: Skull base flow voids intact. OTHER FINDINGS: None. IMPRESSION: Severe chronic microvascular changes are seen in the periventricular and subcortical white matter. No acute intracranial findings
--- NOTE | 2017-09-02 12:13 | CP.PCM.PCO ---
Physician Communication Note - Physician Communication Note Physician Communication Note: mri-neg. 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 pt is cleared.
--- NOTE | 2017-09-02 12:18 | DS ---
HISTORY OF PRESENT ILLNESS: Patient is 81 years old, seen and examined, lying in bed, seems to be comfortable. Daughter is by the bedside. Patient does admit she has poor appetite for no obvious reason. Denies any nausea or vomiting. She had episode of hypoglycemia and fell at home. According to daughter, her oral intake is unpredictable. PHYSICAL EXAMINATION: VITAL SIGNS: She is afebrile, pulse 55, respirations 16, blood pressure 120/57. LUNGS: Bilateral good air flow. No rhonchi or crackle. HEART: S1 and S2 audible. ABDOMEN: Soft, nontender. No rebound. No guarding. NEUROLOGIC: Patient is awake, alert, oriented, communicative. LABORATORY DATA: WBC is 4.5, hemoglobin 9.2, hematocrit 27.6, platelets 103. Chemistry: Sodium 140, potassium 4.3, chloride 102, CO2 is 30, BUN 14, creatinine 0.9. Blood sugar of 197. TSH is 0.02. ASSESSMENT AND PLAN: 1. Status post episode of hypoglycemia secondary to poor oral intake. 2. Hypertension. 3. Nst-cfdrvfc-hwewjsald diabetes. 4. Hypothyroidism. 5. Anxiety disorder. 6. Delusions. PLAN: We will discontinue IV fluids. Discussed with daughters. We can continue her on metformin. We can drop the glipizide. She is currently on levothyroxine 137 mcg; seems to be the dose is higher; so we will cut down to 125 mcg. Continue her on Protonix. Patient will need endoscopy, but will arrange as outpatient and I will request for Neurology consult to evaluate patient for delirium. According to daughter, Risperdal is not helping as it has given her tremors. So, awaiting Neuro input prior to discharge and she will be eventually discharged . Ricardo Rodgers MD
--- NOTE | 2017-09-02 13:07 | CP.PCM.CON ---
History of Present Illness - History of Present Illness History of Present Illness: Palliative consult requested by family. copied to Dr Karla Rodgers Reason: Advance care planning 81 year old with history of dementia, DM,HTN, anxiety who presented with altered mental status, weakness. Found to be hypoglycemic, BS 35 Chest x ray negative. Family reports the patients appetite has been poor. Family denies fever, chills, nausea, vomiting, diarrhea, headache. MRI no acute findings, severe chronic microvascular changes. PMHx: HTN,DM, hypothyroidism, dementia, anxiety,delusions, left fibula fracture. Social History: Never smoker, no alcohol or drug use. Live with her daughter Family History: Non contributory. Advance Care Planning: The patient does not have an Advanced Directive. Review of Systems; As per HPI, otherwise negative. h Past Patient History - Tetanus Immunizations Tetanus Immunization: Unknown - Past Medical History & Family History Past Medical History?: Yes - Past Social History Smoking Status: Never Smoked - CARDIAC Hx Congestive Heart Failure: Yes - PULMONARY Hx Chronic Obstructive Pulmonary Disease (COPD): Yes - NEUROLOGICAL HX Cerebrovascular Accident: Yes - HEENT Hx HEENT Problems: Yes Hx Cataracts: Yes (sx right eye) - RENAL Hx Chronic Kidney Disease: No - ENDOCRINE/METABOLIC Hx Diabetes Mellitus Type 2: Yes - HEMATOLOGICAL/ONCOLOGICAL Hx Blood Disorders: No Hx Shingles: Yes (right back healed) - INTEGUMENTARY Hx Dermatological Problems: Yes Other/Comment: multiple skin discolorationsble, lle +1 edema soft cast +fx left ankle - MUSCULOSKELETAL/RHEUMATOLOGICAL Hx Falls: Yes - GASTROINTESTINAL Hx Gastrointestinal Disorders: Yes Hx Gastroesophageal Reflux: Yes - GENITOURINARY/GYNECOLOGICAL Hx Genitourinary Disorders: No - PSYCHIATRIC Hx Anxiety: Yes Hx Depression: No Hx Substance Use: No - SURGICAL HISTORY Hx Hysterectomy: Yes Other/Comment: varicose vein sx - ANESTHESIA Hx Anesthesia: Yes Hx Anesthesia Reactions: No Hx Malignant Hyperthermia: No Meds Allergies/Adverse Reactions: Allergies Allergy/AdvReac Type Severity Reaction Status Date / Time shellfish derived Allergy Intermediate URTICARIA Verified 08/30/17 22:59 shrimp Allergy Intermediate URTICARIA Verified 08/30/17 22:59 - Medications Medications: Current Medications Acetaminophen (Tylenol 325mg Tab) 650 mg PO Q4H PRN PRN Reason: Fever >100.5 F Last Admin: 09/01/17 02:34 Dose: 650 mg Albuterol/Ipratropium (Duoneb 3 Mg/0.5 Mg (3 Ml) Ud) 3 ml IH [id number] PRN PRN Reason: Shortness of Breath Aspirin (Aspirin Chewable) 81 mg PO DAILY [facility] Atenolol (Tenormin) 25 mg PO DAILY [facility] Last Admin: 09/02/17 09:35 Dose: 25 mg Atorvastatin Calcium (Lipitor) 10 mg PO DAILY [facility] Last Admin: 09/02/17 09:35 Dose: 10 mg Chlordiazepoxide (Librium) 5 mg PO BID [facility] PRN Reason: Protocol Last Admin: 09/02/17 11:06 Dose: 5 mg Cyproheptadine HCl (Periactin) 4 mg PO TID [facility] Last Admin: 09/02/17 09:35 Dose: 4 mg Insulin Human Regular (Humulin R Low) 0 units SC ACHS [facility] PRN Reason: Protocol Last Admin: 09/02/17 11:53 Dose: Not Given Magnesium Oxide (Mag-Ox) 400 mg PO DAILY [facility] Last Admin: 09/02/17 09:35 Dose: 400 mg Memantine (Namenda) 10 mg PO DAILY [facility] Last Admin: 09/02/17 09:35 Dose: 10 mg Metformin HCl (Glucophage) 500 mg PO BID [facility] Last Admin: 09/02/17 09:35 Dose: 500 mg Pantoprazole Sodium (Protonix Ec Tab) 40 mg PO DAILY [facility] Last Admin: 09/02/17 09:35 Dose: 40 mg Risperidone (Risperdal Tab) 0.5 mg PO DIN [facility] PRN Reason: Protocol Last Admin: 09/01/17 17:30 Dose: 0.5 mg Thiamine HCl (Vitamin B1 Tab) 100 mg PO Q8 [facility] Last Admin: 09/02/17 05:47 Dose: 100 mg Physical Exam - Constitutional Appears: Chronically Ill - Head Exam Head Exam: NORMAL INSPECTION - Eye Exam Eye Exam: Normal appearance, PERRL - ENT Exam ENT Exam: Mucous Membranes Moist - Neck Exam Neck exam: Positive for: Normal Inspection - Respiratory Exam Respiratory Exam: Clear to Auscultation Bilateral, NORMAL BREATHING PATTERN - Cardiovascular Exam Cardiovascular Exam: REGULAR RHYTHM, +S1, +S2 - GI/Abdominal Exam GI & Abdominal Exam: Normal Bowel Sounds, Soft Additional comments: no tenderness - Extremities Exam Extremities exam: Positive for: pedal edema, pedal pulses present Additional comments: soft cast left ankle - Back Exam Back exam: NORMAL INSPECTION - Neurological Exam Neurological exam: Alert - Psychiatric Exam Psychiatric exam: Anxious - Skin Skin Exam: Dry, Warm - Additional Findings Additional findings: palliative performance scale rating 50% Results - Vital Signs Recent Vital Signs: Last Vital Signs Temp 97.9 F 09/02/17 06:00 Pulse 71 09/02/17 06:00 Resp 20 09/02/17 06:00 BP 131/57 L 09/02/17 06:00 Pulse Ox 97 09/02/17 06:00 - Labs Result Diagrams: 09/01/17 06:00 09/01/17 06:00 Labs: Laboratory Results - last 24 hr 09/01/17 09/02/17 09/02/17 21:04 07:01 11:06 POC Glucose (mg/dL) 162 H 163 H 169 H Assessment & Plan - Assessment and Plan (Free Text) Assessment: 81 year old female with history of dementia, DM, HTN, hypothyroidism who was admitted with AMS, dementia with behavioral disorder and hypoglycemia which has since resolved. Patients daughter, Dory Narayanan at bedside. The patient has designated Dory as health care surrogate. Dory and I spoke about mothers wishes regarding resuscitation. Mother does not want to be kept alive with extraordinary measures. Daughter specifically states that mother does not want CPR/ intubation. POLST directive completed, Dory Sifuentes is health care surrogate. The paitient is DNR/DNI. A copy of POLST directive is placed in chart. Time spent with patient and daughter in goals of care and advance care planning , 30 minutes Plan: Goals of care and advance care planning POLST: DNR/DNI
--- NOTE | 2017-09-02 16:10 | CON ---
DATE: HISTORY OF PRESENT ILLNESS: In short, the patient is 81-year-old female with multiple medical problems including diabetes, coronary artery disease, gastroenteritis, anxiety, rheumatoid arthritis, hypertension, hyperlipidemia, hypothyroidism. The patient was brought in for altered mental status. The patient was found to have low sugar level. She was admitted on the medical side for further workup for delirium. Psych consult was called because the patient has history of anxiety. The patient also is on psychotropic medications. The patient also has episodes of paranoia and hallucinations. The patient was seen and examined. Discussed with the patient's power of coordinator of health services, who is her daughter, Nica Porter, phone #[phone]. The patient's daughter Nica as well as her sisters, Jamila Oshea are next to their mother. The patient is status post MRI. The patient got sedated because patient is claustrophobic and the patient is deeply sleeping. The patient was easily arousable, would open her eyes, but there is no meaningful conversation possible. Collateral information was obtained from power of coordinator of health services, Nica. As per Nica, the patient was diagnosed with mild dementia and initially she was started on Aricept. The patient was doing well on that medication, but side effect was upset stomach. The patient's daughter reported that at present moment, the patient is on Namenda and she could not see any improvement. The patient's daughter also said that her mother is on the following medications. The patient is on Risperdal 0.25 mg daily, also on Librium 10 mg at the bedtime. The patient's daughter reported that her mother is forgetful. She could not please the staff and being angry about the feeling that somebody is stealing from her. The patient also could have some visual hallucinations and paranoia. The patient at times presents to be irritable and agitated. As per history, the patient has history of anxiety, but the family is not aware that she has history of major depressive disorder and family does not know if the patient was ever being admitted to the psychiatric inpatient unit, but based on the knowledge, the patient was not admitted to the psych unit or had suicidal attempts. The patient also has difficulty to fall asleep and to stay asleep. This insurance underwriter sales reviewed vital signs. VITAL SIGNS: Vital signs seems to be stable. Temperature 97.9, pulse 71, blood pressure 131/57, respiration 20, oxygen saturation is 97. MEDICATIONS: Reviewed. Tylenol, DuoNeb, we will discontinue Librium because it is longer acting medication and for the patient who is elderly, accumulative and confusion effect is the main concern. This insurance underwriter sales educated the patient's family about Xanax, which is shorter acting and good relief from anxiety symptoms, aspirin, atenolol, Lipitor. As per the patient's family request, this insurance underwriter sales had discussion with Dr. Barton who is in agreement to resume Aricept at the nighttime and will monitor with upset stomach very closely and other side effects. Patient is on Humulin, also magnesium oxide. The patient is on Namenda. Dr. Barton recommended to continue Namenda as a test, metformin, Protonix, Risperdal will be increased to 0.5 mg twice a day. It could give the patient relief from irritable and angry outburst and paranoia, thiamine 100 mg p.o. every 8 hours schedule. This insurance underwriter sales also had prolonged conversation with Dr. Rodgers, primary care physician. Treatment plan was discussed in details. This insurance underwriter sales offered patient's family to sign consent for a psychiatric inpatient unit admission, but the patient's family and power of coordinator of health services refused to do so because based on the patient's presentation, the patient's family said "she will be fighting over it. She will be very upset with us." LABORATORY DATA: Reviewed. WBC cells 4.5, hemoglobin and hematocrit are 9.2 and 27.6. Chemistry reviewed. Urinalysis reviewed. Leukocyte esterase trace. Microbiology, no growth. MENTAL STATUS EXAMINATION: This insurance underwriter sales was not able to assess mental status. The patient is status post MRI which seems to be within normal limits and the patient was sedated on Ativan and at present moment, the patient is peacefully sleeping. IMPRESSION: Most likely, the patient had altered mental status due to poorly controlled diabetes and low sugar. The patient also has history of dementia, seems to be with psychosis and behavioral disturbances. As per history, anxiety spectrum disorder need to be ruled out. PLAN: This insurance underwriter sales had prolonged conversation with primary care physician, Dr. Rodgers as well as neurologist, Dr. Barton as per collateral information. The patient was doing well on Aricept, which will be resumed at 10 mg at the nighttime. We will observe any side effects closely. We will continue the rest of the medications. This insurance underwriter sales also increased the dose of Risperdal to 0.5 mg twice a day. Librium will be discontinued because this is a very long acting medication and could give the patient more confusion, Xanax 0.25 mg three times day will be started. This insurance underwriter sales offered the patient family to sign consent for treatment because based on the history, the patient has hallucinations, paranoia and the patient was confused and at times agitated, but the patient's family refused to do so. We will monitor the patient on the medical side and advised accordingly. It took more than 45 minutes to see and manage this patient. Thank you very much for letting me participate in care of your patient. This insurance underwriter sales also educated power of coordinator of health services about risks, benefits and alternatives of all of the medications. Thank you very much for letting me participate in the care of your patient. Tea Sepulveda MD
[2017-09-02 17:44] VITALS: O2SAT 98
[2017-09-03] MEDS: Insulin Reg-LOW-Coverage SC SCH ×2 (07:24→11:49)
[2017-09-03 07:35] VITALS: BP 129/59; PULSE 60; RESP 20; TEMP 98.1
[2017-09-03] MEDS: Magnesium Oxide 400 mg Tab UD PO SCH (09:02)
[2017-09-03] MEDS: Pantoprazole 40 mg EC Tab PO SCH (09:02)
--- NOTE | 2017-09-03 09:11 | DS ---
HISTORY OF PRESENT ILLNESS: Patient is 81 years old, lying in bed, seems to be comfortable, sleepy, but arousable. Daughter is at the bedside. Daughter states she gets angry mostly by the evening. She seems somewhat confused and disoriented especially in the evening hours. She was evaluated by neurologist, had MRI done, this shows chronic ischemic changes, but no tumor, no stroke was appreciated. PHYSICAL EXAMINATION: GENERAL: She is sleepy, but arousable. VITAL SIGNS: She is afebrile. Pulse 71, respirations 20, blood pressure 131/57. LUNGS: Bilateral fair airflow. No rhonchi or crackle. HEART: S1 and S2 audible. ABDOMEN: Soft, nontender. No rebound, no guarding. NEUROLOGIC: She is sleepy, but arousable. Moves all extremities, able to ambulate, but had generalized weakness. LABORATORY DATA: Blood sugar in the afternoon is 169. MRI of the brain is unremarkable. ASSESSMENT AND PLAN: 1. Status post fall secondary to . 2. Hypothyroidism. 3. History of hypertension. 4. Mild dementia with sundowning. 5. Behaviours; mood disorder. So plan is, we will discontinue IV fluids. We will start her on metformin 500 twice a day and I advised daughter to not give glipizide if her oral intake is poor and she will be discharged later on today after she is seen by psychiatrist and I will follow her up in the office in a week. Ricardo Rodgers MD
--- NOTE | 2017-09-03 13:37 | PN ---
DATE: 09/03/2017 FOLLOWUP NOTE SUBJECTIVE: The patient was seen initially yesterday. Please see consultation note for more detailed information. Medications were adjusted. The patient deemed tolerated Xanax as well as Risperdal as well as Aricept very well. The patient was followed up today. The patient was more alert, coherent. At times, the patient appears to be forgetful. For example, the patient does not know what season right now, what is the day today and year. The patient was able to recognize her family member, in this case it is daughter. The patient presented much less calmer as per daughter. Risks, benefits and alternatives of all of the medications were discussed with the patient's power of civil attorney. Vital signs seems to be stable. Temperature 98.1, pulse is 60, blood pressure 129/59, respirations 20, oxygen saturation is 98. Medications reviewed. Tylenol, Xanax 0.25 mg three times a day, aspirin, atenolol, Lipitor, Aricept, Periactin, Humulin, magnesium oxide, Namenda, Glucophage, Protonix, Risperdal 25 mg twice a day, thiamine. Labs reviewed from today. Hemoglobin and hematocrit 9.2 and 27.6. Chemistry reviewed. Urinalysis showed leukocyte esterase positive. MENTAL STATUS EXAMINATION: The patient was more alert. The patient knows that she is in the hospital, was able to recognize her family, but was not oriented in time. Mood described, I feel better. Affect was reactive. Mood congruent. Thought process coherent and goal directed. Thought content, the patient denied visual, auditory or tactile hallucinations. Denied paranoid ideations. The patient does not have any agitation or aggression. Insight and judgment seems to be limited due to dementia. Impulses are well controlled. IMPRESSION: Most likely, the patient has Alzheimer's dementia. The patient also has had delirium, which is improving. PLAN: The patient deemed tolerating medications well. No side effects observed or reported. Spent significant time with the patient's daughter and POA, all questions were answered. Medications discussed. Risks, benefits, alternatives discussed. The patient and her daughter were advised to be followed up with the neurologist as well as primary care physician. The patient was provided with prescription for Xanax as well as Risperdal as well as Librium was discontinued. Aricept and Namenda prescriptions also were provided. The patient needs to follow up with the primary care physician as well as neurologist within 1 week after discharge, family is aware. This marine underwriter will sign off. Should you have any questions, give me a call back. Tea Sepulveda MD
--- NOTE | 2017-09-04 10:09 | DS ---
HISTORY OF PRESENT ILLNESS: The patient is an 81-year-old, seen and examined, sitting in chair, awake and alert, able to communicate, answers simple questions, get agitated at times. PHYSICAL EXAMINATION: VITAL SIGNS: She is afebrile, pulse 60, respirations 20, blood pressure 129/59. LUNGS: Bilateral fair airflow. No rhonchi or crackle. HEART: S1, S2 audible. ABDOMEN: Soft, nontender. No rebound, no guarding. NEUROLOGICAL: Patient is awake, alert, oriented, communicative. LABORATORY EXAM: Blood sugar is 175. ASSESSMENT: 1. Status post episode of hypoglycemia because of poor oral intake. 2. History of fall, a month and a half ago and had distal fibular fracture. The patient is currently ambulatory with ankle brace. 3. Jpc-bwxlzty-[id number] diabetes. 4. Hypertension. 5. Mild dementia. PLAN: Patient has been started on Aricept. Continue her on metformin. Discontinue glipizide. Continue on Namenda. Currently she is on Periactin 4 mg. She is on Risperdal 0.5 in the morning and at night time. Patient will be discharged later on today after seen by psychiatrist who will write the psych medication. Ricardo Rodgers MD
== END 2017-09-03 14:01 | disposition home or self-care (01) ==
LOC: ED 22:37 → ERH 08-31 00:18 → 3RNO 08-31 01:35 → INTOOBSV 09-01 18:24 → OBSVTOIN 09-01 18:24
PROVIDERS: ADMIT Internal Medicine; ATTEND Internal Medicine
DX: E11.649 Type 2 diabetes mellitus with hypoglycemia without coma (principal); E11.65 Type 2 diabetes mellitus with hyperglycemia; E03.9 Hypothyroidism, unspecified; E78.5 Hyperlipidemia, unspecified; E83.42 Hypomagnesemia; F02.81 Dementia in other diseases classified elsewhere, unspecified severity, with behavioral disturbance; F05 Delirium due to known physiological condition; F39 Unspecified mood [affective] disorder; F40.240 Claustrophobia; G30.9 Alzheimer's disease, unspecified; E11.42 Type 2 diabetes mellitus with diabetic polyneuropathy; G93.41 Metabolic encephalopathy; I11.0 Hypertensive heart disease with heart failure; I50.9 Heart failure, unspecified; I25.10 Atherosclerotic heart disease of native coronary artery without angina pectoris; J44.9 Chronic obstructive pulmonary disease, unspecified; K21.9 Gastro-esophageal reflux disease without esophagitis; K52.9 Noninfective gastroenteritis and colitis, unspecified; M06.9 Rheumatoid arthritis, unspecified; S82.402D Unspecified fracture of shaft of left fibula, subsequent encounter for closed fracture with routine healing; Z91.81 History of falling; Z66 Do not resuscitate; Z79.4 Long term (current) use of insulin; Z79.899 Other long term (current) drug therapy; Z86.73 Personal history of transient ischemic attack (TIA), and cerebral infarction without residual deficits; Z90.710 Acquired absence of both cervix and uterus
CPT/HCPCS: 36415; 70551; 71045; 80053; 81001; 82948; 83036; 83735; 84100; 84439; 84443; 84481; 84484; 85025; 93005; 97162; 97530; 99285; G0378; G8978; G8979; J2060; J3475; J7042